=== PATIENT | female | born 1960 | race Caucasian/White ===

== ENCOUNTER 2018-07-30 09:01 | Emergency (ER) | payer OTHER, SELFPAY ==
[2018-07-30 09:02] VITALS: BP 156/92; PULSE 77; RESP 12; TEMP 36.9; O2SAT 100; BMI 36.9
--- NOTE | 2018-07-30 09:12 | CT_ITS ---
STUDY: CT ABDOMEN AND PELVIS WITH CONTRAST REASON FOR EXAM: Female, 57 years old. Left lower quadrant pain. RADIATION DOSAGE (If Supplied By Facility): CTDIvol = ( 13.98 ) mGy, DLP = ( 1102.67 ) mGycm TECHNIQUE: Transaxial images were obtained from the dome of the diaphragm to the symphysis pubis with oral contrast. 100 ml of Isovue 300 contrast was administered. Sagittal and coronal images were reconstructed. Individualized dose optimization techniques were used for this CT. COMPARISON: Comparison is made with prior study dated November 01, 2017. FINDINGS: Stable mild degree of increased markings at the lung bases suggestive of linear atelectasis and/or mild scarring. The visualized portions of the heart are within normal limits. Stable 5 mm cyst in the midportion of the right lobe of the liver. Tiny cyst in the peripheral posterior aspect of the right lobe of the liver. This also evidence of a 1 cm cyst in the midportion of the liver. These are unchanged. Normal gallbladder and extrahepatic biliary system. Normal spleen. Normal pancreas. Normal bilateral adrenal glands. There is a 6.5 cm x 6.8 cm cyst in the upper pole of the right kidney. Normal left kidney. There is a small hiatal hernia. Normal small intestine. There is diverticulosis, with thickening of the colon wall, and pericolonic inflammation changes consistent with acute diverticulitis. There is non-visualization of the appendix. Normal abdominal aorta. Normal inferior vena cava. There is borderline retroperitoneal lymphadenopathy with enlarged nodes no greater than 10mm in the short axis diameter. Normal urinary bladder. There is a small umbilical hernia containing fat. Normal osseous structures. CT/Abdomen/Pelvis WITH Contrast IMPRESSION: Sigmoid diverticulosis and noncomplicated sigmoid diverticulitis. Stable right renal cyst. Multiple subcentimeters cysts in the liver. Electronically Signed: Meek Erwin MD at 11:35 EDT Tel [phone], Service support ,
--- NOTE | 2018-07-30 09:30 | ED.DCSUM_ITS ---
- ER Visit Summary Date of Service: 07/30/18 Chief Complaint: Left lower quadrant pain History of Present Illness: The patient is a 57 F with left lower quadrant pain that started yesterday. Patient states the pain was initially improved with ibuprofen, but now it only takes the edge off. She is passing mucousy stools and has nausea. She denies fever or chills. She states this does feel like her prior diverticulitis. Prior abdominal surgeries are significant for bladder surgery, hysterectomy, appendectomy. Physical Examination: Blood pressure is 156/92, temperature 98.4, heart rate 77 , respiratory rate 12, pulse ox 100% on room air. Patient is lying in the bed. She is tearful. Heart is regular rate and rhythm. Lung sounds are clear. Abdomen is soft with moderate tenderness, worse in the left lower quadrant. There is no guarding at this time. Hypoactive bowel sounds noted throughout. Test Results: CBC is unremarkable. Chemistry studies normal. Urinalysis is positive for nitrites with 10-25 white cells and 2+ bacteria. CT abdomen pelvis with contrast reveals sigmoid diverticulosis and non-complicated sigmoid diverticulitis. Stable right renal cyst is noted. Multiple subcentimeter cysts are noted in the liver. Emergency Department Course and Treatment: Patient was given morphine, Zofran, and IV fluids. Urine culture was sent. Patient is given a dose of IV Cipro and Flagyl. At this time she is tolerating p.o. We will treat her with Cipro and Flagyl at home along with [place], Phenergan, and Colace. If she fails outpatient treatment she may require admission for IV antibiotics. Patient was encouraged to return for worsening pain, fever, vomiting, inability to tolerate antibiotics. Treatment Plan: [] Disposition: Discharge Impression: 1. Sigmoid diverticulitis 2. Cystitis This note was generated with [employer] dictation software. It may contain incorrect words, spelling, and punctuation that were not noted in review of the chart prior to signing ED Disposition - Plan for ED Patient: Disposition: Home or Assisted Living Chief Complaint: Abd Pain Instructions: ED Diverticulitis Prescriptions: proMETHazine tablet [Phenergan] 25 mg PO Q6H PRN PRN #10 tablet PRN Reason: Nausea Docusate Sodium [Colace] 100 mg PO DAILY #20 capsule Hydrocodone/Acetaminophen [[place] 5-325 Tablet] 1 - 2 each PO 4X/DAY PRN PRN 5 Days #20 tablet PRN Reason: Pain Ciprofloxacin [Cipro] 500 mg PO BID #14 tablet Metronidazole [Flagyl] 500 mg PO Q6H #40 tablet Referrals: Katie Greer PA [Primary Care Provider] - 1 Week
[2018-07-30] MEDS: Ondansetron 4 MG/2 ML Vial IV (09:37)
[2018-07-30] MEDS: 0.9% Normal Saline 1,000 ML 150 ML IV ×2 (09:37→11:21)
[2018-07-30] MEDS: Morphine 4 MG/ML Syringe IV ×2 (09:37→11:17)
[2018-07-30 09:41] LABS: Absolute Lymphocyte Count 1.33 X10^3/ul (0.83-4.51); Absolute Neutrophil Count 6.7 X10^3/uL (2.0-7.7); Basophil# 0.02 X10^3/uL; Basophil% 0.2 % (0-1); Eosinophil# 0.12 X10^3/uL; Eosinophils% 1.3 % (0-5); Hematocrit 42.6 % (37-47); Lymphocyte # 1.33 X10^3/ul (4.0); Lymphocyte % 14.9 % (19-41); Mean Corp Hgb Conc 32.9 g/gl (32-36); Mean Corpuscular Hgb 31.5 pg (27.0-32.0); Mean Corpuscular Volume 95.9 fL (81-99); Mean Platelet Vol. 10.3 fl (6.2-12.0); Monocyte# 0.72 X10^3/uL; Monocyte% 8.1 % (0-10); Neutrophil # 6.72 X10^3/uL (2.7-7.7); Neutrophil % 75.2 % (47-70); Platelet Count 243 K/mm3 (150-450); RBC Distribution Width CV 13.1 % (11.6-14.6); RBC Distribution Width SD 44.9 fl (35.1-43.9); Red Blood Count 4.44 M/mm3 (4.2-5.4); White Blood Count 8.9 K/mm3 (4.4-11.0)
[2018-07-30 09:42] LABS: POSITIVE COUNT NO; POSITIVE DIFFERENTIAL NO; POSITIVE MORPHOLOGY NO
[2018-07-30 09:52] LABS: Anion Gap 5 (5-15); BUN 11 mg/dL (7-18); BUN/Creat Ratio 13.9 RATIO (10-20); Calcium,Total 8.7 mg/dL (8.5-10.1); Chloride 106 mmol/L (98-107); Creatinine, Serum 0.79 mg/dL (0.55-1.02); EST Glomerular Filtration Rate 80 mL/min (>60); Est Glom Filt Rate - Afr Amer 97 mL/min (>60); Estimated Creatinine Clearance 57.11 ml/min; Glucose 119 mg/dL (74-106); Potassium 4.4 mmol/L (3.5-5.1); Sodium Level 139 mmol/L (136-145)
[2018-07-30 09:53] LABS: Color, Urine Yellow (Yellow); Glucose, Dipstick Normal (Normal); Ketone-Dipstick Negative (Negative); Leukocyte Esterase-Dipstick 100 /ul (Negative); Mucous, Urine 0 SEEN /hpf (<or=2+); Nitrite-Dipstick Positive (Negative); Occult Blood-Urine 10 /ul (Negative); Protein-Dipstick Negative (Negative); Urine Bilirubin Dipstick Negative (Negative); Urine Clarity Sl. Cloudy (Clear); Urine Urobilinogen Normal (Normal)
[2018-07-30 09:59] LABS: Bacteria 2+ /hpf (None Seen); Red Blood Cells-Urine 0-5 SEEN /hpf (0-5); Squamous Epithelial Cells - UA 0-5 SEEN /hpf (5-10); White Blood Cells 10-25 SEEN /hpf (0-5)
[2018-07-30] MEDS: proMETHazine 25 MG/ML Syringe 6.25 MG IV (11:17)
[2018-07-30] MEDS: Ciprofloxacin 400 MG/200 ML BAG 200 MG IV (11:18)
[2018-07-30 11:42] VITALS: BP 125/62; PULSE 65; RESP 18; TEMP 37; O2SAT 99
[2018-07-30 13:13] VITALS: BP 117/66; PULSE 65; RESP 20; O2SAT 97
[2018-07-30] MEDS: HYDROcodone Bitartrate/Apap 5/325 Tablet PO (13:17)
--- NOTE | 2018-07-30 14:07 | ED.DEP ---
ED Disposition - Plan for ED Patient: Disposition: Home or Assisted Living Chief Complaint: Abd Pain Instructions: ED Diverticulitis Prescriptions: proMETHazine tablet [Phenergan] 25 mg PO Q6H PRN PRN #10 tablet PRN Reason: Nausea Docusate Sodium [Colace] 100 mg PO DAILY #20 capsule Ciprofloxacin [Cipro] 500 mg PO BID #14 tablet Metronidazole [Flagyl] 500 mg PO Q6H #40 tablet Referrals: Katie Greer PA [Primary Care Provider] - 1 Week
--- NOTE | 2018-07-30 14:12 | ED.DEP ---
ED Disposition - Plan for ED Patient: Disposition: Home or Assisted Living Chief Complaint: Abd Pain Instructions: ED Diverticulitis Prescriptions: proMETHazine tablet [Phenergan] 25 mg PO Q6H PRN PRN #10 tablet PRN Reason: Nausea Docusate Sodium [Colace] 100 mg PO DAILY #20 capsule Hydrocodone/Acetaminophen [[place] 5-325 Tablet] 1 - 2 each PO 4X/DAY PRN PRN 5 Days #20 tablet PRN Reason: Pain Ciprofloxacin [Cipro] 500 mg PO BID #14 tablet Metronidazole [Flagyl] 500 mg PO Q6H #40 tablet Referrals: Katie Greer PA [Primary Care Provider] - 1 Week
[2018-07-30 14:25] VITALS: BP 117/66; PULSE 61; RESP 18; O2SAT 99
== END 2018-07-30 14:26 | disposition home or self-care (01) ==
PROVIDERS: Emergency Provider Emergency Medicine; Family Provider Physician Assistant; PCP Physician Assistant
DX: K57.32 Diverticulitis of large intestine without perforation or abscess without bleeding (principal); N30.90 Cystitis, unspecified without hematuria; B96.89 Other specified bacterial agents as the cause of diseases classified elsewhere; K76.89 Other specified diseases of liver; K21.9 Gastro-esophageal reflux disease without esophagitis; I10 Essential (primary) hypertension; E78.00 Pure hypercholesterolemia, unspecified; Z79.82 Long term (current) use of aspirin; Z79.899 Other long term (current) drug therapy; Z72.0 Tobacco use
CPT/HCPCS: 74177; 80048; 81001; 85025; 87077; 87086; 87088; 87186; 96365; 96367; 96375; 96376; 99284; J7030; Q9967; A4216; J0744; J2405

== ENCOUNTER 2020-09-22 17:17 | Inpatient (IN) | payer OTHER, SELFPAY ==
[2020-09-22 17:18] VITALS: BP 138/81; PULSE 71; RESP 16; TEMP 36.6; O2SAT 100; BMI 31.4
--- NOTE | 2020-09-22 17:59 | CT_ITS ---
STUDY: CT ABDOMEN AND PELVIS WITH CONTRAST REASON FOR EXAM: Female, 59 years old. LLQ PAIN TODAY WITH NAUSEA -- HX:HTN,DIVERTICULITIS RADIATION DOSAGE (If Supplied By Facility): CTDIvol = ( 17.41 ) mGy, DLP = ( 913.04 ) mGycm TECHNIQUE: Transaxial images were obtained from the dome of the diaphragm to the symphysis pubis without oral contrast. IV 100mL Isovue-370 was administered. Sagittal and coronal images were reconstructed. Individualized dose optimization techniques were used for this CT. COMPARISON: CT of abdomen and pelvis dated July 30, 2018 FINDINGS: The visualized lung bases are unremarkable. The visualized portions of the heart are within normal limits. Normal liver. Normal gallbladder and extrahepatic biliary system. Normal spleen. Normal pancreas. Normal bilateral adrenal glands. Reidentification of a large simple cyst at superior pole of the right kidney measuring 6.6 cm and requiring no follow-up imaging. Normal left kidney. Normal visualized stomach. Normal small intestine. Mild to moderate acute diverticulitis of the proximal sigmoid colon with surrounding pericolonic inflammatory stranding. Moderate diverticula of the sigmoid colon reidentified. The remaining colonic loops are unremarkable. No free air or abscess. There is non-visualization of the appendix. Normal abdominal aorta. Normal inferior vena cava. Normal retroperitoneum. Normal urinary bladder. There is a small umbilical hernia containing fat. Normal osseous structures. CT/Abdomen/Pelvis W IV Cont ONLY IMPRESSION: 1. Mild to moderate acute diverticulitis of the proximal sigmoid colon with surrounding pericolonic inflammatory stranding. Moderate diverticula of the sigmoid colon reidentified. The remaining colonic loops are unremarkable. No free air or abscess. Electronically Signed: Evelio Nieto MD at 19:15 EST , Service support ,
--- NOTE | 2020-09-22 18:00 | ED.VIS.GEN ---
History of Present Illness Chief Complaint: Abd Pain Informant: Patient Narrative: 59-year-old female with history of diverticulitis presents with left lower quadrant abdominal pain which began this morning is progressively getting worse. She states she did eat popcorn last evening. She states that since her distant last episode of diverticulitis she has been doing well and has been losing weight and eating properly. Patient has nausea but has not been vomiting. She states he might of had a low-grade fever earlier and took ibuprofen. She denies medical problems otherwise except for hypertension. Patient denies urinary symptoms. - Past Medical History (1) Diverticulitis Status: Chronic (2) Depression Status: Chronic (3) GERD (gastroesophageal reflux disease) Status: Chronic (4) Hyperlipemia Status: Chronic (5) Hypertension Status: Chronic Past Medical History - Allergies and Home Meds Allergies/Adverse Reactions: Allergies No Known Allergies Allergy (Verified 09/22/20 17:19) Primary Care Physician: Katie Greer PA [Primary Care Provider] - Prior records reviewed: Yes Past Medical History: - - Reviewed in problem list Surgical History: appendectomy, hysterectomy, tonsillectomy, - Lives: Spouse/ Significant Other Smoking Status: Former smoker Alcohol: None Drugs: None - Family History Maternal Family History: Reports: Cancer, Stroke Paternal Family History: Reports: Stroke Review of Systems General: Reports: Fever - Subjective. Denies: Chills Eyes: Denies: Visual changes - bilaterally, Diplopia ENT: Denies: Rhinorrhea, Sore throat Cardiovascular: Denies: Chest pain, Palpitations Respiratory: Denies: Dyspnea, Cough, Dyspnea on exertion Gastrointestinal: Reports: Abdominal pain, Nausea. Denies: Vomiting, Diarrhea, Constipation Genitourinary: Denies: Dysuria, Hematuria Musculoskeletal: Denies: Myalgias, Arthralgias Skin: Denies: Rash, Abscess Neurological: Denies: Headache, Weakness Psych: Denies: Depression, Anxiety Physical Exam Vital Signs/Narrative: Vital Signs Temp Pulse Resp BP Pulse Ox 09/22/20 17:18 97.8 F 71 16 138/81 H 100 Inital Vital Signs reviewed: Yes General: Well nourished, No Acute Distress Head: Normocephalic Eyes: Perrl, EOMI ENT: Moist mucous membranes, No rhinorrhea Cardiovascular: Regular rate, Regular rhythm Respiratory: No distress Abdomen: Soft, Nondistended, Tender - Tenderness to palpation left lower quadrant. Back: Nontender. Negative for: CVA tenderness Skin: Normal color, No rash Neurological: Alert, Oriented x3 Psychological: Normal affect, Normal Mood Diagnostic/Tx/Re-eval Clinical Impression(s) from Imaging Studies Abdomen/Pelvis CT 09/22/20 17:59 IMPRESSION: 1. Mild to moderate acute diverticulitis of the proximal sigmoid colon with surrounding pericolonic inflammatory stranding. Moderate diverticula of the sigmoid colon reidentified. The remaining colonic loops are unremarkable. No free air or abscess. Electronically Signed: Evelio Nieto MD at 19:15 EST , Service support , Laboratory Data 09/22/20 09/22/20 09/22/20 17:30 17:30 18:55 WBC 9.8 RBC 4.58 Hgb 14.5 Hct 44.9 MCV 98.0 MCH 31.7 MCHC 32.3 RDW Std Deviation 46.8 H RDW Coeff of Jaylen 13.0 Plt Count 272 MPV 10.5 Immature Gran % (Auto) 0.400 Neut % (Auto) 74.4 H Lymph % (Auto) 15.5 L [place] % (Auto) 8.6 Eos % (Auto) 0.9 Baso % (Auto) 0.2 Absolute Neuts (auto) 7.3 Absolute Lymphs (auto) 1.52 Nucleated RBC % 0 Sodium 144 Potassium 4.0 Chloride 107 Carbon Dioxide 34.0 H Anion Gap 3 L BUN 10 Creatinine 0.84 Estim Creat Clear Calc 52.44 Est GFR (MDRD) Af Amer 90 Est GFR (MDRD) Non-Af 74 BUN/Creatinine Ratio 11.9 Glucose 104 Calcium 9.2 Urine Color Yellow Urine Clarity Sl. Cloudy Urine pH 6.0 Ur Specific [place] 1.010 Urine Protein Negative Urine Glucose (UA) Normal Urine Ketones Negative Urine Occult Blood Negative Urine Nitrite Negative Urine Bilirubin Negative Urine Urobilinogen Normal Ur Leukocyte Esterase 100 H Urine RBC 0 SEEN Urine WBC 5-10 SEEN Ur Squamous Epith Cells 0-5 SEEN Urine Bacteria 0 SEEN Urine Mucus 0 SEEN Presents with left lower quadrant pain and history of diverticulitis multiple times. She is not had known fever but states she felt like she might of had a fever. She has nausea without vomiting. Lab work-up today is normal. CT shows mild to moderate diverticulitis. She is given 2 doses of morphine and her pain is still a 5 out of 10. Patient feels that she will not do well at home due to the pain. I spoke with the hospitalist who will admit her for her diverticulitis and intractable abdominal pain. Patient is admitted in stable condition. Impression: 1. Diverticulitis?acute 2. Intractable abdominal pain ED Disposition - Plan for ED Patient: Disposition: Acute Care Hospital [facility] Referrals: Katie Greer PA [Primary Care Provider] -
[2020-09-22] MEDS: Ondansetron 4 MG/2 ML Vial IV (18:04)
[2020-09-22] MEDS: Morphine 4 MG/ML Syringe IV ×2 (18:04→19:55)
[2020-09-22] MEDS: 0.9% Normal Saline 1,000 ML 1000 ML IV (18:04)
[2020-09-22 18:19] LABS: Absolute Lymphocyte Count 1.52 X10^3/uL (0.83-4.51); Absolute Neutrophil Count 7.3 X10^3/uL (2.0-7.7); Basophil# 0.02 X10^3/uL; Basophil% 0.2 % (0-1); Eosinophil# 0.09 X10^3/uL; Eosinophils% 0.9 % (0-5); Hematocrit 44.9 % (37-47); Hemoglobin 14.5 g/dL (12.0-15.0); Lymphocyte # 1.52 X10^3/ul (4.0); Lymphocyte % 15.5 % (19-41); Mean Corp Hgb Conc 32.3 g/dL (32-36); Mean Corpuscular Hgb 31.7 pg (27.0-32.0); Mean Platelet Vol. 10.5 fl (6.2-12.0); Monocyte# 0.84 X10^3/uL; Monocyte% 8.6 % (0-10); NRBC Flagged by Analyzer 0 % (0-5); Neutrophil % 74.4 % (47-70); Platelet Count 272 K/mm3 (150-450); RBC Distribution Width SD 46.8 fl (35.1-43.9); Red Blood Count 4.58 M/mm3 (4.2-5.4); White Blood Count 9.8 K/mm3 (4.4-11.0)
[2020-09-22 18:30] LABS: Anion Gap 3 (5-15); BUN 10 mg/dL (7-18); BUN/Creat Ratio 11.9 RATIO (10-20); Calcium,Total 9.2 mg/dL (8.5-10.1); Chloride 107 mmol/L (98-107); Creatinine, Serum 0.84 mg/dL (0.55-1.02); EST Glomerular Filtration Rate 74 mL/min (>60); Est Glom Filt Rate - Afr Amer 90 mL/min (>60); Estimated Creatinine Clearance 52.44 ml/min; Glucose 104 mg/dL (74-106); Sodium Level 144 mmol/L (136-145)
[2020-09-22 19:08] LABS: Bacteria 0 SEEN /hpf (None Seen); Mucous, Urine 0 SEEN /hpf (<or=2+); Red Blood Cells-Urine 0 SEEN /hpf (0-5)
[2020-09-22 19:10] LABS: Color, Urine Yellow (Yellow); Glucose, Dipstick Normal (Normal); Ketone-Dipstick Negative (Negative); Leukocyte Esterase-Dipstick 100 /ul (Negative); Nitrite-Dipstick Negative (Negative); Occult Blood-Urine Negative /ul (Negative); Protein-Dipstick Negative (Negative); Urine Bilirubin Dipstick Negative (Negative); Urine Clarity Sl. Cloudy (Clear); Urine Urobilinogen Normal (Normal)
[2020-09-22 19:19] LABS: Squamous Epithelial Cells - UA 0-5 SEEN /hpf (5-10); White Blood Cells 5-10 SEEN /hpf (0-5)
[2020-09-22 20:26] VITALS: BMI 31.5
--- NOTE | 2020-09-22 20:28 | HP.PCM_ITS ---
Problem List (1) Diverticulitis Status: Acute (2) Anxiety and depression Status: Chronic (3) Former tobacco use Status: Chronic (4) Obesity (BMI 30.0-34.9) Status: Chronic (5) GERD (gastroesophageal reflux disease) Status: Chronic Qualifiers: Esophagitis presence: esophagitis presence not specified Qualified Code(s): K21.9 - Gastro-esophageal reflux disease without esophagitis (6) Hyperlipemia Status: Chronic Qualifiers: Hyperlipidemia type: unspecified Qualified Code(s): E78.5 - Hyperlipidemia, unspecified (7) Hypertension Status: Chronic Qualifiers: Hypertension type: essential hypertension Qualified Code(s): I10 - Essential (primary) hypertension History of Present Illness Date of Admission: 09/22/20 Chief Complaint: LLQ pain The patient is a 59 y/o F w/ PMHx: Obesity, Anxiety and Depression, HTN, HLD, GERD who presents to the [facility] ED on 09/22/20 with history of ongoing 24 hours of pain, following popcorn intake evening prior, progressed over the course of the day, primarily LLQ with nausea without emesis and subjective fever/chills rated at its worst 10 of 10, currently improved to 4-5 out of 10 upon evaluation but during the day had been worsening and given not improving prompted ED presentation. She notes history of prior episodes last admission noted 2016 but states that she has been treated outpatient several times since then. She notes she has been eating well and decreasing her weight. Patient with some congestion currently but secondary to crying, denies prior any congestion, alteration to sense of taste or smell, cough, dyspnea or even any specific contact with any Covid positive patients. 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 Work-up in the ED included T 97.8, heart rate 71, BP 138/81, respiratory rate 16, 100% on room air, CBC with WBC 9.8, hemoglobin 14.5, platelet 272 without marked shift, BMP with carbon oxide 34 otherwise not marked appearing, urinalysis unremarkable, CT abdomen and pelvis with mild to moderate acute diverticulitis of the proximal sigmoid colon with surrounding pericolonic inflammation and stranding with moderate diverticula of the sigmoid colon reidentified the remaining colonic loops are unremarkable with no free air or abscess. In the ED patient administered normal saline, Zofran, morphine x2 as well as fentanyl. Past Medical History Past Medical History (Chronic Problems): Chronic Problems Anxiety and depression (Chronic) Former tobacco use (Chronic) Obesity (BMI 30.0-34.9) (Chronic) Depression (Chronic) GERD (gastroesophageal reflux disease) (Chronic) Hyperlipemia (Chronic) Hypertension (Chronic) Allergies No Known Allergies Allergy (Verified 09/22/20 17:19) Home Medications: Ambulatory Orders Medication Instructions Recorded Citalopram [Celexa] 20 mg PO DAILY 04/15/16 Lisinopril/Hydrochlorothiazide 1 tablet PO DAILY 04/15/16 [Zestoretic 10.5 Tablet] Pravastatin [Pravachol] 80 mg PO DAILY 04/15/16 Aspirin [Aspirin, Baby] 81 mg PO DAILY@0800 02/19/17 Ascorbic Acid 500 mg PO DAILY 09/22/20 Multivitamin with Minerals 1 tab PO DAILY 09/22/20 [Multiple Vitamin] Omeprazole 20 mg PO DAILY 09/22/20 Surgical History: appendectomy, hysterectomy, tonsillectomy, - - Bilateral tubal ligation, hysterectomy, tonsillectomy, appendectomy, bilateral carpal tunnel surgery. Psychiatric History: Anxiety, Depression [employer] History: No pertinent [employer] history Lives: Spouse/ Significant Other Smoking Status: Former smoker - Patient quit cigarette tobacco usage approximately 28 years prior to current presentation with prior to this 1 to 1.5 pack/day cigarette tobacco use starting when she was a teenager. Tobacco Use: Non-smoker Alcohol: Occasional Drugs: None - *Family History Maternal History Items: Cancer - Mother with a history of colon cancer., Stroke Paternal History Items: Stroke Review of Systems Constitutional: Reports: Anorexia, Chills, Fever, Malaise, Weakness, Fatigue. Denies: Weight Change HEENT: Denies: Head Aches, Sinus Congestion, Sinus Drainage Cardiovascular: Denies: Chest Pain, Palpitations Respiratory: Denies: Cough, Shortness of breath at rest, Sputum production Gastrointestinal: Reports: Abdominal Pain, Nausea, - - Not specifically diarrhea but notes she had more soft mucousy stool.. Denies: Vomiting Genitourinary: Denies: Dysuria Musculoskeletal: Denies: Joint Pain, Joint Tenderness Skin: Denies: Rash, Wounds Neurological: Denies: Numbness, Tingling, Focal weakness Psychiatric: Reports: Anxiety, Depression. Denies: Homicidal Ideations, Suicidal Ideations Hematologic/ Lymphatic: Denies: Easy Bruising, Easy Bleeding VTE Information - Inpt Only VTE Present on Admission: No VTE Mechan Device Prophylaxis: SCD's VTE Pharm Prophylaxis ordered?: Yes Patient Problems: Active and Suspected Problems Diverticulitis (Acute) Subjective: Patient seated upright in the ED bed, uncomfortable appearing, recently has been crying secondary to discomfort. Objective: Physical Examination: General: awake, alert, oriented x 3 and cooperative, seated upright in the ED bed, fatigued and uncomfortable appearing. Skin: normal color, turgor, no icterus, cyanosis. HEENT: AT/NC, EOMI, PERRLA, mildly dry MM, congested voice secondary to recently crying, denies any prior symptoms, no carotid bruits or JVD noted. Lungs: CTA bilaterally, moderate effort, mild decrease BL bases, no rales, ronchi or wheezing. Heart: Regular rate and rhythm; no gallop, rub audible. Abdomen: soft, significantly tender left lower quadrant, voluntary guarding, difficult to assess distention given discomfort, mildly hyperactive bowel sounds, difficult to assess HSM secondary to pain with examination. Extremities: no cyanosis, clubbing, or edema. Neurological: patient awake, alert, oriented x 3; cognitive function intact; pupils equally reactive to light and accomodation; cranial nerves II-XII grossly normal, moving all 4 extremities, no focal deficits, strength moderately to severely globally decreased secondary to acute pain as noted. Psychiatric: affect appears fatigued, uncomfortable appearing, no acute evidence of depressive or anxiety feelings. - Physical Exam Vitals/I&O's: Vital Signs Temp Pulse Resp BP Pulse Ox 97.8 F 71 16 138/81 H 100 09/22/20 17:18 09/22/20 17:18 09/22/20 17:18 09/22/20 17:18 09/22/20 17:18 Oxygen Delivery Method Room Air Weight: 160 lb 11.472 oz Body Mass Index (BMI) 31.4 Intake and Output for Last 24 Hours 09/20/20 09/21/20 09/22/20 23:59 23:59 23:59 Intake Total 1000 / 1000 Balance 1000 / 1000 Laboratory Results 09/22/20 17:30: WBC 9.8, RBC 4.58, Hgb 14.5, Hct 44.9, MCV 98.0, MCH 31.7, MCHC 32.3, RDW Std Deviation 46.8 H, RDW Coeff of Jaylen 13.0, Plt Count 272, MPV 10.5, Immature Gran % (Auto) 0.400, Neut % (Auto) 74.4 H, Lymph % (Auto) 15.5 L, [place] % (Auto) 8.6, Eos % (Auto) 0.9, Baso % (Auto) 0.2, Absolute Neuts (auto) 7.3, Absolute Lymphs (auto) 1.52, Nucleated RBC % 0 09/22/20 17:30: Sodium 144, Potassium 4.0, Chloride 107, Carbon Dioxide 34.0 H, Anion Gap 3 L, BUN 10, Creatinine 0.84, Estim Creat Clear Calc 52.44, Est GFR (MDRD) Af Amer 90, Est GFR (MDRD) Non-Af 74, BUN/Creatinine Ratio 11.9, Glucose 104, Calcium 9.2 09/22/20 18:55: Urine Color Yellow, Urine Clarity Sl. Cloudy, Urine pH 6.0, Ur Specific [place] 1.010, Urine Protein Negative, Urine Glucose (UA) Normal, Urine Ketones Negative, Urine Occult Blood Negative, Urine Nitrite Negative, Urine Bilirubin Negative, Urine Urobilinogen Normal, Ur Leukocyte Esterase 100 H, Urine RBC 0 SEEN, Urine WBC 5-10 SEEN, Ur Squamous Epith Cells 0-5 SEEN, Urine Bacteria 0 SEEN, Urine Mucus 0 SEEN Assessment/Plan All Active Problems Diverticulitis (Acute) The patient is a 59 y/o F w/ PMHx: Obesity, Anxiety and Depression, HTN, HLD, GERD who presents to the [facility] ED on 09/22/20 with history of ongoing 24 hours of pain, following popcorn intake evening prior, progressed over the course of the day, primarily LLQ with nausea without emesis and subjective fever/chills rated at its worst 10 of 10, currently improved to 4-5 out of 10 upon evaluation but during the day had been worsening. 1. Acute proximal sigmoid Diverticulitis: CT A/P w/ evidence of moderate acute diverticulitis of the proximal sigmoid colon with surrounding pericolonic inflammation and stranding. Admission CBC w/ market WBC elevation afebrile in the ED. Will admit to [facility], maintain on aggressive hydration, monitor I&Os, maintain NPO status w/ bowel rest, treat with zosyn regimen, PPI, anti-emetics, pain regimen PRN. Given serial presentations will request general surgery consultation, discussed with Dr. Salmon to assist with outpatient set-up. 2. Hypertension: Continue home regimen including lisinopril, hold hydrochlorothiazide temporarily given presentation, resume once appropriate, PRN hydralazine. 3. Hyperlipidemia: Continue home statin regimen. 4. Anxiety and depression: We will continue patient home Celexa regimen. 5. Obesity: Weight loss and lifestyle changes encouraged. 6. GERD: Maintain on PPI. 7. DVT prophylaxis: SCDs, Lovenox. OBSV E&M: [id number] Initial observation care L3
[2020-09-22] MEDS: fentaNYL 100 MCG/2 ML Ampul 50 MCG IV (21:01)
[2020-09-22 21:04] VITALS: BP 171/73; PULSE 67; RESP 16; TEMP 36.9; O2SAT 99
[2020-09-22 21:32] VITALS: BMI 31.2
[2020-09-22 22:03] VITALS: BP 150/68; PULSE 59; RESP 20; TEMP 37.2; O2SAT 100
[2020-09-22 22:05] VITALS: PULSE 74
[2020-09-22] MEDS: Pravastatin 80 MG Tablet PO (22:29)
[2020-09-22] MEDS: oxyCODONE 5 MG Tablet PO (22:29)
--- NOTE | 2020-09-23 02:30 | NURSING ---
Pt wanted Oxy around 0230 but when I checked on her she was sleeping. I had advised her earlier that I would return around 0230 but would not awaken her if she was sleeping.
[2020-09-23 02:51] VITALS: BP 123/51; PULSE 71; RESP 20; TEMP 37.7; O2SAT 96
[2020-09-23] MEDS: oxyCODONE 5 MG Tablet PO ×2 (02:57→10:55)
[2020-09-23] MEDS: 0.9% Normal Saline 1,000 ML 125 ML IV ×2 (05:32→17:32)
[2020-09-23 06:53] LABS: Absolute Lymphocyte Count 1.14 X10^3/uL (0.83-4.51); Absolute Neutrophil Count 4.5 X10^3/uL (2.0-7.7); Basophil# 0.02 X10^3/uL; Basophil% 0.3 % (0-1); Eosinophil# 0.07 X10^3/uL; Eosinophils% 1.1 % (0-5); Hematocrit 38.2 % (37-47); Hemoglobin 11.7 g/dL (12.0-15.0); Lymphocyte # 1.14 X10^3/ul (4.0); Lymphocyte % 18.2 % (19-41); Mean Corp Hgb Conc 30.6 g/dL (32-36); Mean Corpuscular Hgb 30.4 pg (27.0-32.0); Mean Corpuscular Volume 99.2 fL (81-99); Monocyte# 0.56 X10^3/uL; Monocyte% 8.9 % (0-10); NRBC Flagged by Analyzer 0 % (0-5); Neutrophil # 4.46 X10^3/uL (2.7-7.7); Neutrophil % 71.2 % (47-70); Platelet Count 198 K/mm3 (150-450); RBC Distribution Width SD 47.7 fl (35.1-43.9); Red Blood Count 3.85 M/mm3 (4.2-5.4); White Blood Count 6.3 K/mm3 (4.4-11.0)
[2020-09-23 07:20] LABS: ALB/GLOB Ratio 1.1 RATIO (0.9-2.4); AST(SGOT) 12 U/L (15-37); Alanine Aminotransfer ALT/SGPT 16 U/L (13-56); Albumin, Serum 2.9 g/dL (3.2-5.0); Alkaline Phosphatase 38 U/L (45-117); Anion Gap 4 (5-15); BUN 7 mg/dL (7-18); BUN/Creat Ratio 9.5 RATIO (10-20); Chloride 111 mmol/L (98-107); Creatinine, Serum 0.74 mg/dL (0.55-1.02); EST Glomerular Filtration Rate 86 mL/min (>60); Est Glom Filt Rate - Afr Amer 104 mL/min (>60); Estimated Creatinine Clearance 59.52 ml/min; Globulin 2.7 g/dL (2.2-4.2); Glucose 86 mg/dL (74-106); Potassium 3.5 mmol/L (3.5-5.1); Protein, Total 5.6 g/dL (6.4-8.2); Sodium Level 143 mmol/L (136-145)
[2020-09-23 07:45] VITALS: O2SAT 96
[2020-09-23] MEDS: 0.9% Saline Lock 10 ML Syringe IV (08:09)
--- NOTE | 2020-09-23 08:14 | PN_ITS ---
Patient Problems: Active and Suspected Problems Diverticulitis (Acute) Reason for Visit: Follow-up for acute sigmoid diverticulitis Objective: No fever or tachycardia. No leukocytosis. Heart rate and blood pressure are normal. Denies dysuria or lower urinary tract symptoms. Patient had last bowel movement yesterday and is passing gas. Physical exam General: Alert, Oriented x3, Cooperative HEENT: Atraumatic, PERRLA, EOMI, Normocephalic Oral: No Gingival or Mucosal Lesions/ Ulcerations Neck: Supple, No JVD, Negative Carotid Bruits Lungs: Air entry diminished in bilateral lung bases. No crepitation/rhonchi Cardiovascular: Regular rate, Regular Rhythm, Normal S1, Normal S2, No murmurs Abdomen: Tenderness present over left lower quadrant. Bowel Sounds Present, Soft, Non-Distended : No renal angle tenderness. No suprapubic tenderness. Extremities: No edema, Capillary Refill Less than 3 Seconds Skin: No rashes, No breakdown Musculoskeletal: No Tenderness to Palpation of Joints or Extremities Neurological: Cranial nerves II-XII grossly intact, Deep Tendon Reflexes 2+/4 and Symmetrical, Neuro grossly intact Psych/Mental Status: Normal Affect, Appropriate. Vitals/I&O's: Vital Signs Temp Pulse Resp BP Pulse Ox 99.8 F H 71 20 H 123/51 H 96 09/23/20 02:51 09/23/20 02:51 09/23/20 02:51 09/23/20 02:51 09/23/20 02:51 Oxygen Delivery Method Room Air Weight: 160 lb Body Mass Index (BMI) 31.2 Intake and Output for Last 24 Hours 09/21/20 09/22/20 09/23/20 23:59 23:59 23:59 Intake Total 1110 / 1110 10.42 / 10.42 Output Total 100 / 100 200 / 200 Balance 1010 / 1010 -189.58 / -189.58 Laboratory Results 09/22/20 17:30: WBC 9.8, RBC 4.58, Hgb 14.5, Hct 44.9, MCV 98.0, MCH 31.7, MCHC 32.3, RDW Std Deviation 46.8 H, RDW Coeff of Jaylen 13.0, Plt Count 272, MPV 10.5, Immature Gran % (Auto) 0.400, Neut % (Auto) 74.4 H, Lymph % (Auto) 15.5 L, Hancock % (Auto) 8.6, Eos % (Auto) 0.9, Baso % (Auto) 0.2, Absolute Neuts (auto) 7.3, Absolute Lymphs (auto) 1.52, Nucleated RBC % 0 09/22/20 17:30: Sodium 144, Potassium 4.0, Chloride 107, Carbon Dioxide 34.0 H, Anion Gap 3 L, BUN 10, Creatinine 0.84, Estim Creat Clear Calc 52.44, Est GFR (MDRD) Af Amer 90, Est GFR (MDRD) Non-Af 74, BUN/Creatinine Ratio 11.9, Glucose 104, Calcium 9.2 09/22/20 18:55: Urine Color Yellow, Urine Clarity Sl. Cloudy, Urine pH 6.0, Ur Specific [place] 1.010, Urine Protein Negative, Urine Glucose (UA) Normal, Urine Ketones Negative, Urine Occult Blood Negative, Urine Nitrite Negative, Urine Bilirubin Negative, Urine Urobilinogen Normal, Ur Leukocyte Esterase 100 H, Urine RBC 0 SEEN, Urine WBC 5-10 SEEN, Ur Squamous Epith Cells 0-5 SEEN, Urine Bacteria 0 SEEN, Urine Mucus 0 SEEN 09/23/20 06:18: WBC 6.3, RBC 3.85 L, Hgb 11.7 L, Hct 38.2, MCV 99.2 H, MCH 30.4, MCHC 30.6 L D, RDW Std Deviation 47.7 H, RDW Coeff of Jaylen 13.0, Plt Count 198, MPV 10.0, Immature Gran % (Auto) 0.300, Neut % (Auto) 71.2 H, Lymph % (Auto) 18.2 L, Hancock % (Auto) 8.9, Eos % (Auto) 1.1, Baso % (Auto) 0.3, Absolute Neuts (auto) 4.5, Absolute Lymphs (auto) 1.14, Nucleated RBC % 0 09/23/20 06:18: Sodium 143, Potassium 3.5, Chloride 111 H, Carbon Dioxide 28.0, Anion Gap 4 L, BUN 7, Creatinine 0.74, Estim Creat Clear Calc 59.52, Est GFR (MDRD) Af Amer 104, Est GFR (MDRD) Non-Af 86, BUN/Creatinine Ratio 9.5 L, Glucose 86, Calcium 8.0 L, Total Bilirubin 0.70, AST 12 L, ALT 16, Alkaline Phosphatase 38 L, Total Protein 5.6 L, Albumin 2.9 L, Globulin 2.7, Albumin/Globulin Ratio 1.1 Current Medications Acetaminophen (Acetaminophen 325 Mg Tablet) 650 mg PO Q6H PRN PRN PRN Reason: Pain Score 1-10/Temp > 100.7 F Al Hydroxide/Mg Hydroxide (Mag Hydrox/Al Hydrox/Simeth 30 Ml Udc) 30 ml PO Q6H PRN PRN PRN Reason: Gastric Burning Albuterol Sulfate (Albuterol 2.5 Mg/3 Ml Vial.Neb.) 2.5 mg INHALATION Q2H PRN P RN PRN Reason: Dyspnea, wheezing Ascorbic Acid (Ascorbic Acid 500 Mg Tablet) 500 mg PO DAILY [facility] Aspirin (Aspirin 81 Mg Tab.Chew) 81 mg PO DAILY@0800 [facility] Citalopram Hydrobromide (Citalopram 20 Mg Tablet) 20 mg PO DAILY [facility] Docusate Sodium (Docusate Sodium 100 Mg Capsule) 100 mg PO DAILY [facility] Enoxaparin Sodium (Enoxaparin 40 Mg/0.4 Ml Syringe) 40 mg SC DAILY [facility] Guaifenesin (Guaifenesin 10 Ml Udc (200mg/10ml)) 20 ml PO Q4H PRN PRN PRN Reason: COUGH Hydralazine HCl (Hydralazine 20 Mg/Ml Vial) 10 mg IV Q4H PRN PRN PRN Reason: SBP > 160 Hydromorphone HCl (Hydromorphone 0.5 Mg/0.5 Ml Syringe) 0.5 mg IV Q4H PRN PRN PRN Reason: Pain Score 6-10 Sodium Chloride () 1,000 mls @ 125 mls/hr IV .Q8H [facility] Last Infusion: 09/23/20 07:39 Dose: 125 mls/hr Documented by: Piperacillin Sod/Tazobactam (Sod 3.375 gm/ Sodium Chloride) 50 mls @ 12.5 mls/hr IV Q8 [facility] Last Admin: 09/23/20 05:33 Dose: 12.5 mls/hr Documented by: Pantoprazole Sodium 40 mg/ (Sodium Chloride) 110 mls @ 330 mls/hr IV Q12 [facility] Last Infusion: 11/17/20 22:49 Dose: Infused Documented by: Sodium Chloride () 250 mls @ 15 mls/hr IV .[id number] PRN PRN Reason: Saline Flush Sodium Chloride () 250 mls @ 15 mls/hr IV .[id number] PRN PRN Reason: Additional IVPB Infusion Lisinopril (Lisinopril 10 Mg Tablet) 10 mg PO DAILY [facility] Ondansetron HCl (Ondansetron 4 Mg/2 Ml Vial) 4 mg IV Q8H PRN PRN PRN Reason: NAUSEA/VOMITING Oxycodone HCl (Oxycodone 5 Mg Tablet) 5 mg PO Q4H PRN PRN PRN Reason: Pain Score 4-5 Last Admin: 09/23/20 02:57 Dose: 5 mg Documented by: Pravastatin Sodium (Pravastatin 80 Mg Tablet) 80 mg PO DAILY@2200 [facility] Last Admin: 09/22/20 22:29 Dose: 80 mg Documented by: Prochlorperazine Edisylate (Prochlorperazine 10 Mg/2 Ml Vial) 5 mg IV Q4H PRN PRN PRN Reason: Breakthrough nausea/vomiting Sodium Chloride (0.9% Saline Lock 10 Ml Syringe) 10 - 40 ml IV UD PRN PRN Reason: SALINE FLUSH Temazepam (Temazepam 15 Mg Capsule) 15 mg PO QHS PRN PRN PRN Reason: INSOMNIA Throat Lozenges (Benzocaine/Menthol 1 Lozenge) 1 lozenge MUCOUS MEM Q2H PRN PRN PRN Reason: SORE THROAT Medical Necessity - Tobacco Use Smoking Status: Current every day smoker Tobacco Use: Non-smoker Assessment/Plan All Active Problems Diverticulitis (Acute) The patient is a 59 y/o F with history of hypertension, dyslipidemia and GERD was admitted with severe left lower quadrant abdominal pain, 10/10 intensity along with nausea without vomiting and fever with chills. CT abdomen and pelvis showed moderate Acute sigmoid colon with pericolonic inflammatory stranding. No free air or abscess reported. 1. Acute proximal sigmoid Diverticulitis: [place] [facility] No leukocytosis. H&H is stable 1.7/38.2. Low alkaline phosphatase. K 3.5. Continue IV fluid. Monitor intake and output. N.p.o. except sips. On IV Zosyn. Other supportive medications including antiemetics, PPI and pain. Patient seen by Dr. Salmon and agree with the plan of conservative management. And had colonoscopy about 5 years ago and had polyps removed which were benign. K. Dur 40 mEq 1 dose. Check serum magnesium. 2. Hypertension: Continue lisinopril, hold hydrochlorothiazide. Blood pressure is controlled. 3. Hyperlipidemia: Continue home statin regimen. 4. Anxiety and depression: continue patient home Celexa regimen. 5. Obesity: Weight loss and lifestyle changes encouraged. 6. GERD: Maintain on PPI. 7. DVT prophylaxis: SCDs, Lovenox. Clinical Impression(s) from Imaging Studies Abdomen/Pelvis CT 09/22/20 17:59 IMPRESSION: 1. Mild to moderate proximal sigmoid colon the proximal sigmoid colon with surrounding pericolonic inflammatory stranding. Moderate diverticula of the sigmoid colon reidentified. The remaining colonic loops are unremarkable. No free air or abscess. Laboratory Results 09/22/20 17:30: WBC 9.8, RBC 4.58, Hgb 14.5, Hct 44.9, MCV 98.0, MCH 31.7, MCHC 32.3, RDW Std Deviation 46.8 H, RDW Coeff of Jaylen 13.0, Plt Count 272, MPV 10.5, Immature Gran % (Auto) 0.400, Neut % (Auto) 74.4 H, Lymph % (Auto) 15.5 L, [place]ancock % (Auto) 8.6, Eos % (Auto) 0.9, Baso % (Auto) 0.2, Absolute Neuts (auto) 7.3, Absolute Lymphs (auto) 1.52, Nucleated RBC % 0 09/22/20 17:30: Sodium 144, Potassium 4.0, Chloride 107, Carbon Dioxide 34.0 H, Anion Gap 3 L, BUN 10, Creatinine 0.84, Estim Creat Clear Calc 52.44, Est GFR (MDRD) Af Amer 90, Est GFR (MDRD) Non-Af 74, BUN/Creatinine Ratio 11.9, Glucose 104, Calcium 9.2 09/22/20 18:55: Urine Color Yellow, Urine Clarity Sl. Cloudy, Urine pH 6.0, Ur Specific [place] 1.010, Urine Protein Negative, Urine Glucose (UA) Normal, Urine Ketones Negative, Urine Occult Blood Negative, Urine Nitrite Negative, Urine Bilirubin Negative, Urine Urobilinogen Normal, Ur Leukocyte Esterase 100 H, Urine RBC 0 SEEN, Urine WBC 5-10 SEEN, Ur Squamous Epith Cells 0-5 SEEN, Urine Bacteria 0 SEEN, Urine Mucus 0 SEEN 09/23/20 06:18: WBC 6.3, RBC 3.85 L, Hgb 11.7 L, Hct 38.2, MCV 99.2 H, MCH 30.4, MCHC 30.6 L D, RDW Std Deviation 47.7 H, RDW Coeff of Jaylen 13.0, Plt Count 198, MPV 10.0, Immature Gran % (Auto) 0.300, Neut % (Auto) 71.2 H, Lymph % (Auto) 18.2 L, Hancock % (Auto) 8.9, Eos % (Auto) 1.1, Baso % (Auto) 0.3, Absolute Neuts (auto) 4.5, Absolute Lymphs (auto) 1.14, Nucleated RBC % 0 09/23/20 06:18: Sodium 143, Potassium 3.5, Chloride 111 H, Carbon Dioxide 28.0, Anion Gap 4 L, BUN 7, Creatinine 0.74, Estim Creat Clear Calc 59.52, Est GFR (MDRD) Af Amer 104, Est GFR (MDRD) Non-Af 86, BUN/Creatinine Ratio 9.5 L, Glucose 86, Calcium 8.0 L, Total Bilirubin 0.70, AST 12 L, ALT 16, Alkaline Phosphatase 38 L, Total Protein 5.6 L, Albumin 2.9 L, Globulin 2.7, Albumin/Globulin Ratio 1.1 Inpatient E&M: 82821 Subs Hosp L2
[2020-09-23] MEDS: HYDROmorphone 0.5 MG/0.5 ML SYRINGE IV ×2 (08:16→13:49)
[2020-09-23] MEDS: Aspirin 81 MG TAB.CHEW PO (08:22)
--- NOTE | 2020-09-23 08:53 | PCM.CONS.GEN ---
Problem List (1) Diverticulitis Status: Acute Reason for Consult Date of Consultation: 09/23/20 Reason for Consultation: Acute diverticulitis History of Present Illness: The patient is a 59 year old F who presented with 1 day history of worsening left lower abdominal pain. Patient notes a history of diverticulitis. She has mostly been treated as an outpatient and has had 1 hospitalization for diverticulitis. Patient notes her last hospitalization was years ago. Her last episode of diverticulitis was in December and treated as an outpatient. She notes the abdominal pain is always in the same spot when she does develop diverticulitis. She notes the pain intensity is 7 out 10. Patient notes nausea, mucousy soft stool. She denies vomiting, blood in her stool. She noted eating popcorn 2 days ago. Patient notes losing 30 pounds since December intentionally. She notes her last colonoscopy was approximately [address] Campos. She had a polyp removed in the colon. Pathology returned as colonic mucous. Patient notes her mother had colon cancer. Patient has previously had a hysterectomy, appendectomy and bladder surgery. Patient denies cardiac history. She notes previous history of pneumonia, however denies COPD and asthma. CT scan of the ab/pel demonstrated Mild to moderate acute diverticulitis of the proximal sigmoid colon with surrounding pericolonic inflammatory stranding. Moderate diverticula of the sigmoid colon reidentified. The remaining colonic loops are unremarkable. No free air or abscess. WBC 9.8 --> 6.3 Past Medical History Past Medical History (Chronic Problems): Chronic Problems Anxiety and depression (Chronic) Former tobacco use (Chronic) Obesity (BMI 30.0-34.9) (Chronic) Depression (Chronic) GERD (gastroesophageal reflux disease) (Chronic) Hyperlipemia (Chronic) Hypertension (Chronic) Allergies No Known Allergies Allergy (Verified 09/22/20 17:19) Home Medications: Ambulatory Orders Medication Instructions Recorded Citalopram [Celexa] 20 mg PO DAILY 04/15/16 Lisinopril/Hydrochlorothiazide 1 tablet PO DAILY 04/15/16 [Zestoretic 08/17.5 Tablet] Pravastatin [Pravachol] 80 mg PO DAILY 04/15/16 Aspirin [Aspirin, Baby] 81 mg PO DAILY@0800 02/19/17 Ascorbic Acid 500 mg PO DAILY 09/22/20 Multivitamin with Minerals 1 tab PO DAILY 09/22/20 [Multiple Vitamin] Omeprazole 20 mg PO DAILY 09/22/20 Surgical History: appendectomy, hysterectomy, tonsillectomy 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 Denies: Chills, Weight Change HEENT: Denies: Head Aches, Sinus Congestion, Sinus Drainage Cardiovascular: Denies: Chest Pain, Palpitations Respiratory: Denies: Cough, Shortness of breath at rest, Sputum production Gastrointestinal: Reports: Abdominal Pain, Nausea. Denies: Hematochezia, Vomiting Genitourinary: Denies: Dysuria Musculoskeletal: Denies: Joint Pain, Joint Tenderness Skin: Denies: Rash, Wounds Neurological: Denies: Numbness, Tingling, Focal weakness Psychiatric: Reports: Depression. Denies: Anxiety, Homicidal Ideations, Suicidal Ideations Hematologic/ Lymphatic: Denies: Easy Bruising, Easy Bleeding Patient Problems: Active and Suspected Problems Diverticulitis (Acute) - Physical Exam Vitals/I&O's: Vital Signs Temp Pulse Resp BP Pulse Ox 99.8 F H 71 20 H 123/51 H 96 09/23/20 02:51 09/23/20 02:51 09/23/20 02:51 09/23/20 02:51 09/23/20 07:45 Oxygen Delivery Method Room Air Weight: 160 lb Body Mass Index (BMI) 31.2 Intake and Output for Last 24 Hours 09/21/20 09/22/20 09/23/20 23:59 23:59 23:59 Intake Total 1160 / 1160 10.42 / 10.42 Output Total 100 / 100 200 / 200 Balance 1060 / 1060 -189.58 / -189.58 General: Alert, Oriented x3, Cooperative HEENT: Atraumatic, PERRLA, EOMI, Normocephalic Neck: Supple, No JVD, Negative Carotid Bruits Lungs: Clear to auscultation, Normal air movement Cardiovascular: Regular rate, No murmurs Abdomen: Soft, Tender - left lower quadrant Extremities: No edema, Capillary Refill Less than 3 Seconds Skin: No rashes, No breakdown Musculoskeletal: No Tenderness to Palpation of Joints or Extremities Neurological: Neuro grossly intact Psych/Mental Status: Normal Affect, Appropriate Laboratory Results 09/22/20 17:30: WBC 9.8, RBC 4.58, Hgb 14.5, Hct 44.9, MCV 98.0, MCH 31.7, MCHC 32.3, RDW Std Deviation 46.8 H, RDW Coeff of Jaylen 13.0, Plt Count 272, MPV 10.5, Immature Gran % (Auto) 0.400, Neut % (Auto) 74.4 H, Lymph % (Auto) 15.5 L, Sharp % (Auto) 8.6, Eos % (Auto) 0.9, Baso % (Auto) 0.2, Absolute Neuts (auto) 7.3, Absolute Lymphs (auto) 1.52, Nucleated RBC % 0 09/22/20 17:30: Sodium 144, Potassium 4.0, Chloride 107, Carbon Dioxide 34.0 H, Anion Gap 3 L, BUN 10, Creatinine 0.84, Estim Creat Clear Calc 52.44, Est GFR (MDRD) Af Amer 90, Est GFR (MDRD) Non-Af 74, BUN/Creatinine Ratio 11.9, Glucose 104, Calcium 9.2 09/22/20 18:55: Urine Color Yellow, Urine Clarity Sl. Cloudy, Urine pH 6.0, Ur Specific [place] 1.010, Urine Protein Negative, Urine Glucose (UA) Normal, Urine Ketones Negative, Urine Occult Blood Negative, Urine Nitrite Negative, Urine Bilirubin Negative, Urine Urobilinogen Normal, Ur Leukocyte Esterase 100 H, Urine RBC 0 SEEN, Urine WBC 5-10 SEEN, Ur Squamous Epith Cells 0-5 SEEN, Urine Bacteria 0 SEEN, Urine Mucus 0 SEEN 09/23/20 06:18: WBC 6.3, RBC 3.85 L, Hgb 11.7 L, Hct 38.2, MCV 99.2 H, MCH 30.4, MCHC 30.6 L D, RDW Std Deviation 47.7 H, RDW Coeff of Jaylen 13.0, Plt Count 198, MPV 10.0, Immature Gran % (Auto) 0.300, Neut % (Auto) 71.2 H, Lymph % (Auto) 18.2 L, Sharp % (Auto) 8.9, Eos % (Auto) 1.1, Baso % (Auto) 0.3, Absolute Neuts (auto) 4.5, Absolute Lymphs (auto) 1.14, Nucleated RBC % 0 09/23/20 06:18: Sodium 143, Potassium 3.5, Chloride 111 H, Carbon Dioxide 28.0, Anion Gap 4 L, BUN 7, Creatinine 0.74, Estim Creat Clear Calc 59.52, Est GFR (MDRD) Af Amer 104, Est GFR (MDRD) Non-Af 86, BUN/Creatinine Ratio 9.5 L, Glucose 86, Calcium 8.0 L, Total Bilirubin 0.70, AST 12 L, ALT 16, Alkaline Phosphatase 38 L, Total Protein 5.6 L, Albumin 2.9 L, Globulin 2.7, Albumin/Globulin Ratio 1.1 Current Medications Acetaminophen (Acetaminophen 325 Mg Tablet) 650 mg PO Q6H PRN PRN PRN Reason: Pain Score 1-10/Temp > 100.7 F Al Hydroxide/Mg Hydroxide (Mag Hydrox/Al Hydrox/Simeth 30 Ml Udc) 30 ml PO Q6H PRN PRN PRN Reason: Gastric Burning Albuterol Sulfate (Albuterol 2.5 Mg/3 Ml Vial.Neb.) 2.5 mg INHALATION Q2H PRN PRN PRN Reason: Dyspnea, wheezing Ascorbic Acid (Ascorbic Acid 500 Mg Tablet) 500 mg PO DAILY [facility] Aspirin (Aspirin 81 Mg Tab.Chew) 81 mg PO DAILY@0800 [facility] Last Admin: 09/23/20 08:22 Dose: 81 mg Documented by: Citalopram Hydrobromide (Citalopram 20 Mg Tablet) 20 mg PO DAILY [facility] Docusate Sodium (Docusate Sodium 100 Mg Capsule) 100 mg PO DAILY [facility] Enoxaparin Sodium (Enoxaparin 40 Mg/0.4 Ml Syringe) 40 mg SC DAILY [facility] Guaifenesin (Guaifenesin 10 Ml Udc (200mg/10ml)) 20 ml PO Q4H PRN PRN PRN Reason: COUGH Hydralazine HCl (Hydralazine 20 Mg/Ml Vial) 10 mg IV Q4H PRN PRN PRN Reason: SBP > 160 Hydromorphone HCl (Hydromorphone 0.5 Mg/0.5 Ml Syringe) 0.5 mg IV Q4H PRN PRN PRN Reason: Pain Score 6-10 Last Admin: 09/23/20 08:16 Dose: 0.5 mg Documented by: Sodium Chloride () 1,000 mls @ 125 mls/hr IV .Q8H [facility] Last Infusion: 09/23/20 07:39 Dose: 125 mls/hr Documented by: Piperacillin Sod/Tazobactam (Sod 3.375 gm/ Sodium Chloride) 50 mls @ 12.5 mls/hr IV Q8 [facility] Last Admin: 09/23/20 05:33 Dose: 12.5 mls/hr Documented by: Pantoprazole Sodium 40 mg/ (Sodium Chloride) 110 mls @ 330 mls/hr IV Q12 [facility] Last Infusion: 09/22/20 22:49 Dose: Infused Documented by: Sodium Chloride () 250 mls @ 15 mls/hr IV .[id number] PRN PRN Reason: Saline Flush Sodium Chloride () 250 mls @ 15 mls/hr IV .[id number] PRN PRN Reason: Additional IVPB Infusion Lisinopril (Lisinopril 10 Mg Tablet) 10 mg PO DAILY [facility] Ondansetron HCl (Ondansetron 4 Mg/2 Ml Vial) 4 mg IV Q8H PRN PRN PRN Reason: NAUSEA/VOMITING Oxycodone HCl (Oxycodone 5 Mg Tablet) 5 mg PO Q4H PRN PRN PRN Reason: Pain Score 4-5 Last Admin: 09/23/20 02:57 Dose: 5 mg Documented by: Pravastatin Sodium (Pravastatin 80 Mg Tablet) 80 mg PO DAILY@2200 [facility] Last Admin: 09/22/20 22:29 Dose: 80 mg Documented by: Prochlorperazine Edisylate (Prochlorperazine 10 Mg/2 Ml Vial) 5 mg IV Q4H PRN PRN PRN Reason: Breakthrough nausea/vomiting Sodium Chloride (0.9% Saline Lock 10 Ml Syringe) 10 - 40 ml IV UD PRN PRN Reason: SALINE FLUSH Last Admin: 09/23/20 08:09 Dose: 10 ml Documented by: Temazepam (Temazepam 15 Mg Capsule) 15 mg PO QHS PRN PRN PRN Reason: INSOMNIA Throat Lozenges (Benzocaine/Menthol 1 Lozenge) 1 lozenge MUCOUS MEM Q2H PRN PRN PRN Reason: SORE THROAT Assessment/Plan All Active Problems Diverticulitis (Acute) I have been consulted in conjunction with Dr. Salmon. Impression: Acute diverticulitis Plan: I have discussed this patient with Dr. Salmon. Recommend IV antibiotics, IV fluids, keep NPO and conservative measures. I have discussed with the patient that if her symptoms fail with conservative measures, surgical intervention may be recommended. Patient has had the opportunity to ask and have questions answered. Patient verbally understands and agrees with the plan. Thank you for allowing us to participate in this patient's care. Office Visits / Consults: [id number] IP Consult L3
[2020-09-23 08:54] VITALS: BP 126/54; PULSE 63; RESP 18; TEMP 37.1; O2SAT 98
[2020-09-23] MEDS: Docusate Sodium 100 MG Capsule PO (10:46)
[2020-09-23] MEDS: Lisinopril 10 MG Tablet PO (10:46)
[2020-09-23] MEDS: Enoxaparin 40 MG/0.4 ML Syringe SC (10:46)
[2020-09-23] MEDS: Ascorbic Acid 500 MG Tablet PO (10:46)
[2020-09-23] MEDS: Citalopram 20 MG Tablet PO (10:46)
[2020-09-23] MEDS: BENZOCAINE/MENTHOL 1 LOZENGE MUCOUS MEM (10:55)
[2020-09-23 12:22] LABS: Magnesium 2.1 mg/dL (1.6-2.6)
--- NOTE | 2020-09-23 13:06 | CHAPLAIN ---
Type of Pastoral Visit _x__ Initial Visit ___ Follow-up Visit ___ On-call Visit ___ General Patient Visit ___ Spiritual Assessment ___ Family Conference ___ Bereavement ___ Rapid Response ___ Code Blue ___ Other (describe below) Pastoral Care Referral From _x__ Patient ___ Family ___ Nurse ___ Physician ___ Chips Screen Tender ___ Coordinate Measuring Machine Operator ___ Other (describe below) Sacrament/Intervention _x__ Active listening ___ Anointing ___ Moravian ___ Bereavement ___ Communion _x__ [place] exploration ___ _x__ Life review _x__ Prayer ___ Reconciliation ___ Sacrament of Sick ___ Supportive presence ___ Wedding ___ Other (describe below) Pastoral Comments
[2020-09-23 16:03] VITALS: BP 122/87; PULSE 79; RESP 18; TEMP 37; O2SAT 98
[2020-09-23] MEDS: Pravastatin 80 MG Tablet PO (21:42)
[2020-09-23 21:43] VITALS: BP 100/88; PULSE 74; RESP 18; TEMP 36.7; O2SAT 95
[2020-09-24] MEDS: 0.9% Normal Saline 1,000 ML 125 ML IV ×2 (00:52→09:22)
[2020-09-24] MEDS: Acetaminophen 325 MG Tablet 650 MG PO ×3 (00:53→22:32)
[2020-09-24 02:06] VITALS: BP 113/41; PULSE 70; RESP 18; TEMP 36.7; O2SAT 97
[2020-09-24 06:02] LABS: Absolute Lymphocyte Count 1.64 X10^3/uL (0.83-4.51); Absolute Neutrophil Count 3.8 X10^3/uL (2.0-7.7); Basophil# 0.03 X10^3/uL; Basophil% 0.5 % (0-1); Eosinophil# 0.11 X10^3/uL; Eosinophils% 1.8 % (0-5); Hematocrit 35.3 % (37-47); Hemoglobin 11.2 g/dL (12.0-15.0); Lymphocyte # 1.64 X10^3/ul (4.0); Lymphocyte % 27.2 % (19-41); Mean Corp Hgb Conc 31.7 g/dL (32-36); Mean Corpuscular Hgb 31.5 pg (27.0-32.0); Mean Corpuscular Volume 99.4 fL (81-99); Mean Platelet Vol. 10.1 fl (6.2-12.0); Monocyte# 0.39 X10^3/uL; Monocyte% 6.5 % (0-10); NRBC Flagged by Analyzer 0 % (0-5); Neutrophil # 3.82 X10^3/uL (2.7-7.7); Neutrophil % 63.5 % (47-70); Platelet Count 196 K/mm3 (150-450); RBC Distribution Width CV 12.2 % (11.6-14.6); RBC Distribution Width SD 45.1 fl (35.1-43.9); Red Blood Count 3.55 M/mm3 (4.2-5.4)
[2020-09-24 06:42] LABS: Anion Gap 6 (5-15); BUN 9 mg/dL (7-18); BUN/Creat Ratio 13.9 RATIO (10-20); Calcium,Total 8.3 mg/dL (8.5-10.1); Chloride 109 mmol/L (98-107); Creatinine, Serum 0.65 mg/dL (0.55-1.02); EST Glomerular Filtration Rate 100 mL/min (>60); Est Glom Filt Rate - Afr Amer 121 mL/min (>60); Estimated Creatinine Clearance 67.76 ml/min; Glucose 64 mg/dL (74-106); Potassium 3.9 mmol/L (3.5-5.1); Sodium Level 139 mmol/L (136-145)
[2020-09-24 08:10] VITALS: BP 122/59; PULSE 65; RESP 16; TEMP 36.3; O2SAT 98
--- NOTE | 2020-09-24 10:01 | PCM.PN.SRG ---
Patient Problems: Active and Suspected Problems Diverticulitis (Acute) Subjective: Patient's abdominal pain is much improved, patient has been taking some Tylenol did get started on clears had some liquid stool today. - Physical Exam Vitals/I&O's: Vital Signs Temp Pulse Resp BP Pulse Ox 97.3 F L 65 16 122/59 H 98 09/24/20 08:10 09/24/20 08:10 09/24/20 08:10 09/24/20 08:10 09/24/20 08:10 Oxygen Delivery Method Room Air Weight: 160 lb Body Mass Index (BMI) 31.2 Intake and Output for Last 24 Hours 09/22/20 09/23/20 09/24/20 23:59 23:59 23:59 Intake Total 1160 / 1160 1720.00 / 1720.00 2276.67 / 2276.67 Output Total 100 / 100 300 / 300 1000 / 1000 Balance 1060 / 1060 1420.00 / 1420.00 1276.67 / 1276.67 General: Alert, Oriented x3, Cooperative, No apparent distress HEENT: Atraumatic Lungs: Normal air movement Cardiovascular: Regular rate Abdomen: Soft, Non-Distended, Tender - Mild left lower quadrant, no peritoneal signs Extremities: No clubbing, No cyanosis, No edema Laboratory Results 09/23/20 06:18: Magnesium 2.1 09/24/20 05:30: WBC 6.0, RBC 3.55 L, Hgb 11.2 L, Hct 35.3 L, MCV 99.4 H, MCH 31.5, MCHC 31.7 L, RDW Std Deviation 45.1 H, RDW Coeff of Jaylen 12.2, Plt Count 196, MPV 10.1, Immature Gran % (Auto) 0.500, Neut % (Auto) 63.5, Lymph % (Auto) 27.2, [place] % (Auto) 6.5, Eos % (Auto) 1.8, Baso % (Auto) 0.5, Absolute Neuts (auto) 3.8, Absolute Lymphs (auto) 1.64, Nucleated RBC % 0 09/24/20 05:30: Sodium 139, Potassium 3.9, Chloride 109 H, Carbon Dioxide 24.0, Anion Gap 6, BUN 9, Creatinine 0.65, Estim Creat Clear Calc 67.76, Est GFR (MDRD) Af Amer 121, Est GFR (MDRD) Non-Af 100, BUN/Creatinine Ratio 13.9, Glucose 64 L, Calcium 8.3 L Current Medications Acetaminophen (Acetaminophen 325 Mg Tablet) 650 mg PO Q6H PRN PRN PRN Reason: Pain Score 1-10/Temp > 100.7 F Last Admin: 09/24/20 07:38 Dose: 650 mg Documented by: Al Hydroxide/Mg Hydroxide (Mag Hydrox/Al Hydrox/Simeth 30 Ml Udc) 30 ml PO Q6H PRN PRN PRN Reason: Gastric Burning Albuterol Sulfate (Albuterol 2.5 Mg/3 Ml Vial.Neb.) 2.5 mg INHALATION Q2H PRN PRN PRN Reason: Dyspnea, wheezing Ascorbic Acid (Ascorbic Acid 500 Mg Tablet) 500 mg PO DAILY [facility] Last Admin: 09/23/20 10:46 Dose: 500 mg Documented by: Aspirin (Aspirin 81 Mg Tab.Chew) 81 mg PO DAILY@0800 [facility] Last Admin: 09/23/20 08:22 Dose: 81 mg Documented by: Citalopram Hydrobromide (Citalopram 20 Mg Tablet) 20 mg PO DAILY [facility] Last Admin: 09/23/20 10:46 Dose: 20 mg Documented by: Docusate Sodium (Docusate Sodium 100 Mg Capsule) 100 mg PO DAILY [facility] Last Admin: 09/23/20 10:46 Dose: 100 mg Documented by: Enoxaparin Sodium (Enoxaparin 40 Mg/0.4 Ml Syringe) 40 mg SC DAILY [facility] Last Admin: 09/23/20 10:46 Dose: 40 mg Documented by: Guaifenesin (Guaifenesin 10 Ml Udc (200mg/10ml)) 20 ml PO Q4H PRN PRN PRN Reason: COUGH Hydralazine HCl (Hydralazine 20 Mg/Ml Vial) 10 mg IV Q4H PRN PRN PRN Reason: SBP > 160 Hydromorphone HCl (Hydromorphone 0.5 Mg/0.5 Ml Syringe) 0.5 mg IV Q4H PRN PRN PRN Reason: Pain Score 6-10 Last Admin: 09/23/20 13:49 Dose: 0.5 mg Documented by: Sodium Chloride () 1,000 mls @ 125 mls/hr IV .Q8H [facility] Last Admin: 09/24/20 09:22 Dose: 125 mls/hr Documented by: Piperacillin Sod/Tazobactam (Sod 3.375 gm/ Sodium Chloride) 50 mls @ 12.5 mls/hr IV Q8 [facility] Last Infusion: 09/24/20 09:43 Dose: Infused Documented by: Pantoprazole Sodium 40 mg/ (Sodium Chloride) 110 mls @ 330 mls/hr IV Q12 [facility] Last Infusion: 09/24/20 09:43 Dose: Infused Documented by: Sodium Chloride () 250 mls @ 15 mls/hr IV .[id number] PRN PRN Reason: Saline Flush Sodium Chloride () 250 mls @ 15 mls/hr IV .[id number] PRN PRN Reason: Additional IVPB Infusion Lisinopril (Lisinopril 10 Mg Tablet) 10 mg PO DAILY [facility] Last Admin: 09/23/20 10:46 Dose: 10 mg Documented by: Ondansetron HCl (Ondansetron 4 Mg/2 Ml Vial) 4 mg IV Q8H PRN PRN PRN Reason: NAUSEA/VOMITING Oxycodone HCl (Oxycodone 5 Mg Tablet) 5 mg PO Q4H PRN PRN PRN Reason: Pain Score 4-5 Last Admin: 09/23/20 10:55 Dose: 5 mg Documented by: Pravastatin Sodium (Pravastatin 80 Mg Tablet) 80 mg PO DAILY@2200 [facility] Last Admin: 09/23/20 21:42 Dose: 80 mg Documented by: Prochlorperazine Edisylate (Prochlorperazine 10 Mg/2 Ml Vial) 5 mg IV Q4H PRN PRN PRN Reason: Breakthrough nausea/vomiting Sodium Chloride (0.9% Saline Lock 10 Ml Syringe) 10 - 40 ml IV UD PRN PRN Reason: SALINE FLUSH Last Admin: 09/23/20 08:09 Dose: 10 ml Documented by: Temazepam (Temazepam 15 Mg Capsule) 15 mg PO QHS PRN PRN PRN Reason: INSOMNIA Throat Lozenges (Benzocaine/Menthol 1 Lozenge) 1 lozenge MUCOUS MEM Q2H PRN PRN PRN Reason: SORE THROAT Last Admin: 09/23/20 10:55 Dose: 1 lozenge Documented by: Medical Necessity - Tobacco Use Smoking Status: Current every day smoker Tobacco Use: Non-smoker Assessment/Plan All Active Problems Diverticulitis (Acute) 59-year-old female with diverticulitis. Started on clears today okay to advance to full's later today if patient tolerates. Continue IV Zosyn possible DC tomorrow if patient's pain continues to improve and patient tolerates diet.Patient would be DC'd on a low fiber diet for about 4 to 5 weeks. Also DC'd with antibiotics Augmentin 875 mg p.o. twice daily for total antibiotics of [address] Alex Salmon M.D. Pager: [phone] [facility] [address] [place] [address], [facility] [place], [address] [place] [id number] Office: [phone] Inpatient E&M: [id number] [facility] Hosp L1
[2020-09-24] MEDS: Ascorbic Acid 500 MG Tablet PO (10:51)
[2020-09-24] MEDS: Aspirin 81 MG TAB.CHEW PO (10:51)
[2020-09-24] MEDS: Lisinopril 10 MG Tablet PO (10:51)
[2020-09-24] MEDS: Citalopram 20 MG Tablet PO (10:51)
[2020-09-24] MEDS: Enoxaparin 40 MG/0.4 ML Syringe SC (10:51)
[2020-09-24 12:00] VITALS: BP 132/22; PULSE 62; RESP 20; TEMP 37.1; O2SAT 99
--- NOTE | 2020-09-24 15:50 | PN_ITS ---
Patient Problems: Active and Suspected Problems Diverticulitis (Acute) Reason for Visit: Low for acute on recurrent diverticulitis. Objective: Patient had bowel movement and currently having liquid bowel movement 3-4 times. Patient requested for Imodium. No fever or chills. Patient heart rate and blo od pressure controlled. Complain of mild left lower quadrant abdominal pain. Physical exam General: Alert, Oriented x3, Cooperative HEENT: Atraumatic, PERRLA, EOMI, Normocephalic Oral: No Gingival or Mucosal Lesions/ Ulcerations Neck: Supple, No JVD, Negative Carotid Bruits Lungs: Air entry diminished in bilateral lung bases. No crepitation/rhonchi Cardiovascular: Regular rate, Regular Rhythm, Normal S1, Normal S2, No murmurs Abdomen: Soft, mild left lower quadrant tenderness. No palpable mass. Bowel Sounds Present, Non-Distended : No renal angle tenderness. No suprapubic tenderness. Extremities: No edema, Capillary Refill Less than 3 Seconds Skin: No rashes, No breakdown Musculoskeletal: No Tenderness to Palpation of Joints or Extremities Neurological: Cranial nerves II-XII grossly intact, Deep Tendon Reflexes 2+/4 and Symmetrical, Neuro grossly intact Psych/Mental Status: Normal Affect, Appropriate. Vitals/I&O's: Vital Signs Temp Pulse Resp BP Pulse Ox 98.8 F 62 20 H 132/22 H 99 09/24/20 12:00 09/24/20 12:00 09/24/20 12:00 09/24/20 12:00 09/24/20 12:00 Oxygen Delivery Method Room Air Weight: 160 lb Body Mass Index (BMI) 31.2 Intake and Output for Last 24 Hours 09/22/20 09/23/20 09/24/20 23:59 23:59 23:59 Intake Total 1160 / 1160 1720.00 / 1720.00 3055.42 / 3055.42 Output Total 100 / 100 300 / 300 1700 / 1700 Balance 1060 / 1060 1420.00 / 1420.00 1355.42 / 1355.42 Laboratory Results 09/24/20 05:30: WBC 6.0, RBC 3.55 L, Hgb 11.2 L, Hct 35.3 L, MCV 99.4 H, MCH 31.5, MCHC 31.7 L, RDW Std Deviation 45.1 H, RDW Coeff of Jaylen 12.2, Plt Count 196, MPV 10.1, Immature Gran % (Auto) 0.500, Neut % (Auto) 63.5, Lymph % (Auto) 27.2, [place] % (Auto) 6.5, Eos % (Auto) 1.8, Baso % (Auto) 0.5, Absolute Neuts (auto) 3.8, Absolute Lymphs (auto) 1.64, Nucleated RBC % 0 09/24/20 05:30: Sodium 139, Potassium 3.9, Chloride 109 H, Carbon Dioxide 24.0, Anion Gap 6, BUN 9, Creatinine 0.65, Estim Creat Clear Calc 67.76, Est GFR (MDRD) Af Amer 121, Est GFR (MDRD) Non-Af 100, BUN/Creatinine Ratio 13.9, Glucose 64 L, Calcium 8.3 L Current Medications Acetaminophen (Acetaminophen 325 Mg Tablet) 650 mg PO Q6H PRN PRN PRN Reason: Pain Score 1-10/Temp > 100.7 F Last Admin: 09/24/20 07:38 Dose: 650 mg Documented by: Al Hydroxide/Mg Hydroxide (Mag Hydrox/Al Hydrox/Simeth 30 Ml Udc) 30 ml PO Q6H PRN PRN PRN Reason: Gastric Burning Albuterol Sulfate (Albuterol 2.5 Mg/3 Ml Vial.Neb.) 2.5 mg INHALATION Q2H PRN PRN PRN Reason: Dyspnea, wheezing Ascorbic Acid (Ascorbic Acid 500 Mg Tablet) 500 mg PO DAILY [facility] Last Admin: 09/24/20 10:51 Dose: 500 mg Documented by: Aspirin (Aspirin 81 Mg Tab.Chew) 81 mg PO DAILY@0800 [facility] Last Admin: 09/24/20 10:51 Dose: 81 mg Documented by: Citalopram Hydrobromide (Citalopram 20 Mg Tablet) 20 mg PO DAILY [facility] Last Admin: 09/24/20 10:51 Dose: 20 mg Documented by: Docusate Sodium (Docusate Sodium 100 Mg Capsule) 100 mg PO DAILY [facility] Last Admin: 09/24/20 10:51 Dose: Not Given Documented by: Enoxaparin Sodium (Enoxaparin 40 Mg/0.4 Ml Syringe) 40 mg SC DAILY [facility] Last Admin: 09/24/20 10:51 Dose: 40 mg Documented by: Guaifenesin (Guaifenesin 10 Ml Udc (200mg/10ml)) 20 ml PO Q4H PRN PRN PRN Reason: COUGH Hydralazine HCl (Hydralazine 20 Mg/Ml Vial) 10 mg IV Q4H PRN PRN PRN Reason: SBP > 160 Hydromorphone HCl (Hydromorphone 0.5 Mg/0.5 Ml Syringe) 0.5 mg IV Q4H PRN PRN PRN Reason: Pain Score 6-10 Last Admin: 09/23/20 13:49 Dose: 0.5 mg Documented by: Sodium Chloride () 1,000 mls @ 75 mls/hr IV .[id number] [facility] Last Infusion: 09/24/20 14:25 Dose: 75 mls/hr Documented by: Piperacillin Sod/Tazobactam (Sod 3.375 gm/ Sodium Chloride) 50 mls @ 12.5 mls/hr IV Q8 [facility] Last Admin: 09/24/20 14:24 Dose: 12.5 mls/hr Documented by: Pantoprazole Sodium 40 mg/ (Sodium Chloride) 110 mls @ 330 mls/hr IV Q12 [facility] Last Infusion: 09/24/20 09:43 Dose: Infused Documented by: Sodium Chloride () 250 mls @ 15 mls/hr IV .[id number] PRN PRN Reason: Saline Flush Sodium Chloride () 250 mls @ 15 mls/hr IV .[id number] PRN PRN Reason: Additional IVPB Infusion Lactobacillus Acidophilus (Lactobacillus Acidophilus) 2 tablet PO BID [facility] Lisinopril (Lisinopril 10 Mg Tablet) 10 mg PO DAILY [facility] Last Admin: 09/24/20 10:51 Dose: 10 mg Documented by: Ondansetron HCl (Ondansetron 4 Mg/2 Ml Vial) 4 mg IV Q8H PRN PRN PRN Reason: NAUSEA/VOMITING Oxycodone HCl (Oxycodone 5 Mg Tablet) 5 mg PO Q4H PRN PRN PRN Reason: Pain Score 4-5 Last Admin: 09/23/20 10:55 Dose: 5 mg Documented by: Pravastatin Sodium (Pravastatin 80 Mg Tablet) 80 mg PO DAILY@2200 [facility] Last Admin: 09/23/20 21:42 Dose: 80 mg Documented by: Prochlorperazine Edisylate (Prochlorperazine 10 Mg/2 Ml Vial) 5 mg IV Q4H PRN PRN PRN Reason: Breakthrough nausea/vomiting Sodium Chloride (0.9% Saline Lock 10 Ml Syringe) 10 - 40 ml IV UD PRN PRN Reason: SALINE FLUSH Last Admin: 09/23/20 08:09 Dose: 10 ml Documented by: Temazepam (Temazepam 15 Mg Capsule) 15 mg PO QHS PRN PRN PRN Reason: INSOMNIA Throat Lozenges (Benzocaine/Menthol 1 Lozenge) 1 lozenge MUCOUS MEM Q2H PRN PRN PRN Reason: SORE THROAT Last Admin: 09/23/20 10:55 Dose: 1 lozenge Documented by: STROKE Vital Signs/Narrative: Vital Signs Temp Pulse Resp BP Pulse Ox 09/24/20 12:00 98.8 F 62 20 H 132/22 H 99 Medical Necessity - Tobacco Use Smoking Status: Current every day smoker Tobacco Use: Non-smoker Assessment/Plan All Active Problems Diverticulitis (Acute) The patient is a 59 y/o F with history of hypertension, dyslipidemia and GERD was admitted with severe left lower quadrant abdominal pain, 10/10 intensity along with nausea without vomiting and fever with chills. CT abdomen and pelvis showed moderate Acute sigmoid colon with pericolonic inflammatory stranding. No free air or abscess reported. 1. Acute proximal sigmoid Diverticulitis: [place] [facility] No leukocytosis. H&H is stable 1.7/38.2. Low alkaline phosphatase. K 3.5. Continue IV fluid. Monitor intake and output. N.p.o. except sips. On IV Zosyn. Other supportive medications including antiemetics, PPI and pain. Patient seen by Dr. Salmon and agree with the plan of conservative management. And had colonoscopy about 5 years ago and had polyps removed which were benign. 09/24: Serum K and magnesium level normal. Patient having liquid bowel movement. Stool for C. difficile ordered. Lactobacillus ordered. If C. difficile is negative, Imodium can be given for symptomatic relief. 2. Hypertension: Continue lisinopril, hold hydrochlorothiazide. Blood pressure is controlled. 3. Hyperlipidemia: Continue home statin regimen. 4. Anxiety and depression: continue patient home Celexa regimen. 5. Obesity: Weight loss and lifestyle changes encouraged. 6. GERD: Maintain on PPI. 7. DVT prophylaxis: SCDs, Lovenox. Clinical Impression(s) from Imaging Studies Abdomen/Pelvis CT 09/22/20 17:59 IMPRESSION: 1. Mild to moderate proximal sigmoid colon the proximal sigmoid colon with surrounding pericolonic inflammatory stranding. Moderate diverticula of the sigmoid colon reidentified. The remaining colonic loops are unremarkable. No free air or abscess. Laboratory Results 09/24/20 05:30: WBC 6.0, RBC 3.55 L, Hgb 11.2 L, Hct 35.3 L, MCV 99.4 H, MCH 31.5, MCHC 31.7 L, RDW Std Deviation 45.1 H, RDW Coeff of Jaylen 12.2, Plt Count 196, MPV 10.1, Immature Gran % (Auto) 0.500, Neut % (Auto) 63.5, Lymph % (Auto) 27.2, [place] % (Auto) 6.5, Eos % (Auto) 1.8, Baso % (Auto) 0.5, Absolute Neuts (auto) 3.8, Absolute Lymphs (auto) 1.64, Nucleated RBC % 0 09/24/20 05:30: Sodium 139, Potassium 3.9, Chloride 109 H, Carbon Dioxide 24.0, Anion Gap 6, BUN 9, Creatinine 0.65, Estim Creat Clear Calc 67.76, Est GFR (MDRD) Af Amer 121, Est GFR (MDRD) Non-Af 100, BUN/Creatinine Ratio 13.9, Glucose 64 L, Calcium 8.3 L Inpatient E&M: [id number] Subs Hosp L2
[2020-09-24 20:20] VITALS: BP 116/96; PULSE 74; RESP 18; TEMP 36.8; O2SAT 98
[2020-09-24] MEDS: 0.9% Normal Saline 1,000 ML 75 ML IV (21:53)
[2020-09-24] MEDS: Pravastatin 80 MG Tablet PO (22:32)
[2020-09-25 03:17] VITALS: BP 154/68; PULSE 60; RESP 18; TEMP 36.6; O2SAT 99
[2020-09-25 06:14] LABS: Absolute Lymphocyte Count 1.19 X10^3/uL (0.83-4.51); Absolute Neutrophil Count 1.9 X10^3/uL (2.0-7.7); Basophil# 0.02 X10^3/uL; Basophil% 0.5 % (0-1); Eosinophil# 0.21 X10^3/uL; Eosinophils% 5.7 % (0-5); Hematocrit 36.6 % (37-47); Hemoglobin 11.9 g/dL (12.0-15.0); Lymphocyte # 1.19 X10^3/ul (4.0); Lymphocyte % 32.3 % (19-41); Mean Corp Hgb Conc 32.5 g/dL (32-36); Mean Corpuscular Hgb 31.1 pg (27.0-32.0); Mean Corpuscular Volume 95.6 fL (81-99); Mean Platelet Vol. 10.3 fl (6.2-12.0); Monocyte# 0.32 X10^3/uL; Monocyte% 8.7 % (0-10); NRBC Flagged by Analyzer 0 % (0-5); Neutrophil # 1.93 X10^3/uL (2.7-7.7); Neutrophil % 52.5 % (47-70); Platelet Count 235 K/mm3 (150-450); RBC Distribution Width CV 12.4 % (11.6-14.6); RBC Distribution Width SD 42.6 fl (35.1-43.9); Red Blood Count 3.83 M/mm3 (4.2-5.4); White Blood Count 3.7 K/mm3 (4.4-11.0)
[2020-09-25 06:38] LABS: Anion Gap 2 (5-15); BUN 7 mg/dL (7-18); Calcium,Total 8.4 mg/dL (8.5-10.1); Chloride 112 mmol/L (98-107); EST Glomerular Filtration Rate 91 mL/min (>60); Est Glom Filt Rate - Afr Amer 110 mL/min (>60); Estimated Creatinine Clearance 62.92 ml/min; Glucose 85 mg/dL (74-106); Potassium 3.7 mmol/L (3.5-5.1); Sodium Level 142 mmol/L (136-145)
[2020-09-25 08:15] VITALS: BP 143/67; PULSE 57; RESP 16; TEMP 36.8; O2SAT 99
--- NOTE | 2020-09-25 08:32 | PN.SURG_ITS ---
Patient Problems: Active and Suspected Problems Diverticulitis (Acute) Subjective: juan liquid diet, still has some LLQ but improving and only taking tylenol, +diarrhea- c.diff neg-like from abx - Physical Exam Vitals/I&O's: Vital Signs Temp Pulse Resp BP Pulse Ox 98.3 F 57 L 16 143/67 H 99 09/25/20 08:15 09/25/20 08:15 09/25/20 08:15 09/25/20 08:15 09/25/20 08:15 Oxygen Delivery Method Room Air Weight: 160 lb Body Mass Index (BMI) 31.2 Intake and Output for Last 24 Hours 09/23/20 09/24/20 09/25/20 23:59 23:59 23:59 Intake Total 1720.00 / 1720.00 4593.42 / 4593.42 397.5 / 397.5 Output Total 300 / 300 2300 / 2300 Balance 1420.00 / 1420.00 2293.42 / 2293.42 397.5 / 397.5 General: Alert, Oriented x3, Cooperative, No apparent distress HEENT: Atraumatic Lungs: Normal air movement Cardiovascular: Regular rate Abdomen: Soft, Non-Distended, Tender - LLq no PS Extremities: No clubbing, No cyanosis, No edema Microbiology Past 72 Hours 09/24/20 15:05 Stool C. difficile DNA Amplification - Final Laboratory Results 09/25/20 05:50: WBC 3.7 L, RBC 3.83 L, Hgb 11.9 L, Hct 36.6 L, MCV 95.6, MCH 31.1, MCHC 32.5, RDW Std Deviation 42.6, RDW Coeff of Jaylen 12.4, Plt Count 235, MPV 10.3, Immature Gran % (Auto) 0.300, Neut % (Auto) 52.5, Lymph % (Auto) 32.3, [place] % (Auto) 8.7, Eos % (Auto) 5.7 H, Baso % (Auto) 0.5, Absolute Neuts (auto) 1.9 L, Absolute Lymphs (auto) 1.19, Nucleated RBC % 0 09/25/20 05:50: Sodium 142, Potassium 3.7, Chloride 112 H, Carbon Dioxide 28.0, Anion Gap 2 L, BUN 7, Creatinine 0.70, Estim Creat Clear Calc 62.92, Est GFR (MDRD) Af Amer 110, Est GFR (MDRD) Non-Af 91, BUN/Creatinine Ratio 10.0, Glucose 85, Calcium 8.4 L Current Medications Acetaminophen (Acetaminophen 325 Mg Tablet) 650 mg PO Q6H PRN PRN PRN Reason: Pain Score 1-10/Temp > 100.7 F Last Admin: 09/24/20 22:32 Dose: 650 mg Documented by: Al Hydroxide/Mg Hydroxide (Mag Hydrox/Al Hydrox/Simeth 30 Ml Udc) 30 ml PO Q6H PRN PRN PRN Reason: Gastric Burning Albuterol Sulfate (Albuterol 2.5 Mg/3 Ml Vial.Neb.) 2.5 mg INHALATION Q2H PRN PRN PRN Reason: Dyspnea, wheezing Ascorbic Acid (Ascorbic Acid 500 Mg Tablet) 500 mg PO DAILY [facility] Last Admin: 09/24/20 10:51 Dose: 500 mg Documented by: Aspirin (Aspirin 81 Mg Tab.Chew) 81 mg PO DAILY@0800 [facility] Last Admin: 09/24/20 10:51 Dose: 81 mg Documented by: Citalopram Hydrobromide (Citalopram 20 Mg Tablet) 20 mg PO DAILY [facility] Last Admin: 09/24/20 10:51 Dose: 20 mg Documented by: Docusate Sodium (Docusate Sodium 100 Mg Capsule) 100 mg PO DAILY [facility] Last Admin: 09/24/20 10:51 Dose: Not Given Documented by: Enoxaparin Sodium (Enoxaparin 40 Mg/0.4 Ml Syringe) 40 mg SC DAILY [facility] Last Admin: 09/24/20 10:51 Dose: 40 mg Documented by: Guaifenesin (Guaifenesin 10 Ml Udc (200mg/10ml)) 20 ml PO Q4H PRN PRN PRN Reason: COUGH Hydralazine HCl (Hydralazine 20 Mg/Ml Vial) 10 mg IV Q4H PRN PRN PRN Reason: SBP > 160 Sodium Chloride () 1,000 mls @ 75 mls/hr IV .[id number] [facility] Last Infusion: 09/24/20 22:48 Dose: 75 mls/hr Documented by: Piperacillin Sod/Tazobactam (Sod 3.375 gm/ Sodium Chloride) 50 mls @ 12.5 mls/hr IV Q8 [facility] Last Admin: 09/25/20 05:31 Dose: 12.5 mls/hr Documented by: Pantoprazole Sodium 40 mg/ (Sodium Chloride) 110 mls @ 330 mls/hr IV Q12 [facility] Last Infusion: 09/24/20 22:13 Dose: Infused Documented by: Sodium Chloride () 250 mls @ 15 mls/hr IV .[id number] PRN PRN Reason: Saline Flush Last Infusion: 09/25/20 05:57 Dose: 0 mls/hr Documented by: Sodium Chloride () 250 mls @ 15 mls/hr IV .[id number] PRN PRN Reason: Additional IVPB Infusion Lactobacillus Acidophilus (Lactobacillus Acidophilus) 2 tablet PO BID [facility] Last Admin: 09/24/20 22:32 Dose: 2 tablet Documented by: Lisinopril (Lisinopril 10 Mg Tablet) 10 mg PO DAILY [facility] Last Admin: 09/24/20 10:51 Dose: 10 mg Documented by: Ondansetron HCl (Ondansetron 4 Mg/2 Ml Vial) 4 mg IV Q8H PRN PRN PRN Reason: NAUSEA/VOMITING Oxycodone HCl (Oxycodone 5 Mg Tablet) 5 mg PO Q4H PRN PRN PRN Reason: Pain Score 4-5 Last Admin: 09/23/20 10:55 Dose: 5 mg Documented by: Pravastatin Sodium (Pravastatin 80 Mg Tablet) 80 mg PO DAILY@2200 [facility] Last Admin: 09/24/20 22:32 Dose: 80 mg Documented by: Prochlorperazine Edisylate (Prochlorperazine 10 Mg/2 Ml Vial) 5 mg IV Q4H PRN PRN PRN Reason: Breakthrough nausea/vomiting Sodium Chloride (0.9% Saline Lock 10 Ml Syringe) 10 - 40 ml IV UD PRN PRN Reason: SALINE FLUSH Last Admin: 09/23/20 08:09 Dose: 10 ml Documented by: Temazepam (Temazepam 15 Mg Capsule) 15 mg PO QHS PRN PRN PRN Reason: INSOMNIA Throat Lozenges (Benzocaine/Menthol 1 Lozenge) 1 lozenge MUCOUS MEM Q2H PRN PRN PRN Reason: SORE THROAT Last Admin: 09/23/20 10:55 Dose: 1 lozenge Documented by: Medical Necessity - Tobacco Use Smoking Status: Current every day smoker Tobacco Use: Non-smoker Assessment/Plan All Active Problems Diverticulitis (Acute) 59-year-old female with diverticulitis. on transitional diet. ok to d/c per surgery. Also DC'd with antibiotics Augmentin 875 mg p.o. twice daily for total antibiotics of [address] Alex Salmon M.D. Pager: [phone] [facility] [address] [place] [address], [facility], [address] [place] [address] Office: [phone] Inpatient E&M: [id number] Subs Hosp L1
[2020-09-25 09:55] VITALS: BP 129/70; PULSE 59; RESP 16; TEMP 37.2; O2SAT 98
[2020-09-25] MEDS: Aspirin 81 MG TAB.CHEW PO (10:01)
[2020-09-25] MEDS: Lisinopril 10 MG Tablet PO (10:03)
[2020-09-25] MEDS: Citalopram 20 MG Tablet PO (10:03)
[2020-09-25] MEDS: Ascorbic Acid 500 MG Tablet PO (10:04)
[2020-09-25] MEDS: Acetaminophen 325 MG Tablet 650 MG PO (10:04)
[2020-09-25] MEDS: Enoxaparin 40 MG/0.4 ML Syringe SC (10:05)
--- NOTE | 2020-09-25 10:05 | CASEMGMT ---
RN CM Face to Face with patient for initial transition planning/care coordination assessment. RN CM introduced self and role at [facility]. Patient sitting in chair, alert and oriented. Patient willing to participate in assessment and is able to answer all questions appropriately. Care providers, pharmacy, and demographics verified. Patient wishes to discharge home, denies need for home health at this time. Patient states she has no further needs or concerns at this time. CM to follow for discharge planning needs that may arise. PCP: Solomon Greer Specialists: MADHU Kumari [facility]erred [facility]acy: [facility] Insurance: [employer] Prescription Benefit: yes Living Will/HPOA: none LNOK: Living Arrangements: Patient lives with in a 3 story home. Patient states she is independent and able to ambulate stairs. Transportation: self, DME/HHC: Patient states she has BSC, cane, walker, and cpap at home. Patient denies previous HHC. Disposition Plan: Patient to discharge home with family support and follow-up plans in place. Sigrid HAMMONDS, RN, CM
--- NOTE | 2020-09-25 10:34 | PCM.DC ---
- Discharge Diagnoses Current Active Problems: Current Active and Chronic Problems Anxiety and depression (Chronic) Former tobacco use (Chronic) Obesity (BMI 30.0-34.9) (Chronic) Diverticulitis (Acute) Depression (Chronic) GERD (gastroesophageal reflux disease) (Chronic) Hyperlipemia (Chronic) Hypertension (Chronic) You will use the following diet at home:: Cardiac Your food should be the consistency of: Regular Discharge Activity: May Not Drive - for 1 week Weight Bearing Status: Weight bearing as tolerated Call your doctor if you observe: Fever of 101 or Higher, Coldness, Increased Pain, Numbness or Tingling, Change in Color, Inability to urinate, Inability to have a bowel movement, Using more than one pad per hour, Shortness of breath, Dizziness, Fainting spells, Swelling in the ankles, Chest pain, Prolonged hiccoughing, Increased palpitations (irregular heartbeat), Calf discomfort Allergies/Adverse Reactions: Allergies No Known Allergies Allergy (Verified 09/22/20 17:19) Medications to take at Discharge Citalopram [Celexa] 20 mg PO DAILY 04/15/16 Lisinopril/Hydrochlorothiazide [Zestoretic 08/17.5 Tablet] 1 tablet PO DAILY 04/15/16 Pravastatin [Pravachol] 80 mg PO DAILY 04/15/16 Aspirin [Aspirin, Baby] 81 mg PO DAILY@0800 02/19/17 Ascorbic Acid 500 mg PO DAILY 09/22/20 Multivitamin with Minerals [Multiple Vitamin] 1 tab PO DAILY 09/22/20 Omeprazole 20 mg PO DAILY 09/22/20 Amoxicillin/Potassium Clav [Augmentin 875-125 Tablet] 1 ea PO BID #14 tab 09/25/20 Lactobacillus Acidophilus [Acidophilus] 1 tab PO TID #60 tab 09/25/20 The following prescriptions were given: Lactobacillus Acidophilus [Acidophilus] 1 tab PO TID #60 tab [facility]: [facility] Amoxicillin/Potassium Clav [Augmentin 875-125 Tablet] 1 ea PO BID #14 tab Transmission Status: Pending to [facility] Primary Care Physician: Katie Greer, PA [Primary Care Provider] - Please follow up with your Primary Care Physician in: in 1-2 week Test Results: Test results from this visit will be discussed in further detail at your follow-up appointment, if applicable. Please Follow Up With: Petrona Salmon MD When: in 2-4 weeks
--- NOTE | 2020-09-25 10:36 | DS.PCM_ITS ---
Discharge Date and Diagnosis - Problem List Patient Problems: Active and Suspected Problems Diverticulitis (Acute) Date of Admission: 11/01/17 Date of Discharge: 09/25/20 - Primary Discharge Diagnosis Acute Problems: Active Problems Diverticulitis (Acute) - Secondary Discharge Diagnosis Chronic Problems: Chronic Problems Anxiety and depression (Chronic) Former tobacco use (Chronic) Obesity (BMI 30.0-34.9) (Chronic) Depression (Chronic) GERD (gastroesophageal reflux disease) (Chronic) Hyperlipemia (Chronic) Hypertension (Chronic) Hospital Course and Treatment Operations: None Summary of Care Provided: The patient is a 59 y/o F with history of hypertension, dyslipidemia and GERD was admitted with severe left lower quadrant abdominal pain, 10/10 intensity along with nausea without vomiting and fever with chills. CT abdomen and pelvis showed moderate Acute sigmoid colon diverticulitis with pericolonic inflammatory stranding. No free air or abscess reported. 1. Acute proximal sigmoid Diverticulitis: The patient was admitted on [facility] floor. No leukocytosis. H&H is stable 1.7/38.2. Low alkaline phosphatase. K 3.5. The patient was treated with IV fluid, initially n.p.o. and IV antibiotic Zosyn along with other supportive medications for nausea and vomiting and pain control. Patient seen by Dr. Salmon and agree with the plan of conservative management. And had colonoscopy about 5 years ago and had polyps removed which were benign. Serum K and magnesium level normal. Patient had liquid bowel movement which is much improved. Stool for C. difficile negative. Patient diarrhea improved on lactobacillus advised to continue it. 2. Hypertension: Continue lisinopril, hold hydrochlorothiazide. Blood pressure is controlled. 3. Hyperlipidemia: Continue home statin regimen. 4. Anxiety and depression: continue patient home Celexa regimen. 5. Obesity: Weight loss and lifestyle changes encouraged. 6. GERD: Maintain on PPI. 7. DVT prophylaxis: SCDs, Lovenox. Discharge medication reconciliation done. Discharge follow-up instructions completed. Discharge process discussed with the patient and all questions were answered to patient's satisfaction. Patient advised to follow-up with Dr. Salmon in 4 weeks to schedule follow-up colonoscopy. Total time spent, exact 35 minutes on discharge meds reconciliation, examination, coordination of care with nurses and ancillary staff, review of imaging and blood test and discussion with the patient on follow-up instructi ons Clinical Impression(s) from Imaging Studies Abdomen/Pelvis CT 09/22/20 17:59 IMPRESSION: 1. Mild to moderate proximal sigmoid colon the proximal sigmoid colon with surrounding pericolonic inflammatory stranding. Moderate diverticula of the sigmoid colon reidentified. The remaining colonic loops are unremarkable. No free air or abscess.F [] Patient Problems: Active and Suspected Problems Diverticulitis (Acute) Objective: Seen and examined. Patient diarrhea has resolved. She is taking lactobacillus and is helping it. Stool for C. difficile PCR negative. Physical exam General: Alert, Oriented x3, Cooperative HEENT: Atraumatic, PERRLA, EOMI, Normocephalic Oral: No Gingival or Mucosal Lesions/ Ulcerations Neck: Supple, No JVD, Negative Carotid Bruits Lungs: Air entry equal in bilateral lung bases. No crepitation/rhonchi Cardiovascular: Regular rate, Regular Rhythm, Normal S1, Normal S2, No murmurs Abdomen: Soft, mild left lower quadrant tenderness but has much improved. No palpable mass. Bowel Sounds Present, Non-Distended : No renal angle tenderness. No suprapubic tenderness. Extremities: No edema, Capillary Refill Less than 3 Seconds Skin: No rashes, No breakdown Musculoskeletal: No Tenderness to Palpation of Joints or Extremities Neurological: Cranial nerves II-XII grossly intact, Deep Tendon Reflexes 2+/4 and Symmetrical, Neuro grossly intact Psych/Mental Status: Normal Affect, Appropriate. - Physical Exam Vitals/I&O's: Vital Signs Temp Pulse Resp BP Pulse Ox 98.9 F 59 L 16 129/70 H 98 09/25/20 09:55 09/25/20 09:55 09/25/20 09:55 09/25/20 09:55 09/25/20 09:55 Oxygen Delivery Method Room Air Weight: 160 lb Body Mass Index (BMI) 31.2 Intake and Output for Last 24 Hours 09/23/20 09/24/20 09/25/20 23:59 23:59 23:59 Intake Total 1720.00 / 1720.00 4593.42 / 4593.42 1397.5 / 1397.5 Output Total 300 / 300 2300 / 2300 Balance 1420.00 / 1420.00 2293.42 / 2293.42 1397.5 / 1397.5 Microbiology Past 72 Hours 09/24/20 15:05 Stool C. difficile DNA Amplification - Final Laboratory Results 09/25/20 05:50: WBC 3.7 L, RBC 3.83 L, Hgb 11.9 L, Hct 36.6 L, MCV 95.6, MCH 31.1, MCHC 32.5, RDW Std Deviation 42.6, RDW Coeff of Jaylen 12.4, Plt Count 235, MPV 10.3, Immature Gran % (Auto) 0.300, Neut % (Auto) 52.5, Lymph % (Auto) 32.3, [place] % (Auto) 8.7, Eos % (Auto) 5.7 H, Baso % (Auto) 0.5, Absolute Neuts (auto) 1.9 L, Absolute Lymphs (auto) 1.19, Nucleated RBC % 0 09/25/20 05:50: Sodium 142, Potassium 3.7, Chloride 112 H, Carbon Dioxide 28.0, Anion Gap 2 L, BUN 7, Creatinine 0.70, Estim Creat Clear Calc 62.92, Est GFR (MDRD) Af Amer 110, Est GFR (MDRD) Non-Af 91, BUN/Creatinine Ratio 10.0, Glucose 85, Calcium 8.4 L Current Medications Acetaminophen (Acetaminophen 325 Mg Tablet) 650 mg PO Q6H PRN PRN PRN Reason: Pain Score 1-10/Temp > 100.7 F Last Admin: 09/25/20 10:04 Dose: 650 mg Documented by: Al Hydroxide/Mg Hydroxide (Mag Hydrox/Al Hydrox/Simeth 30 Ml Udc) 30 ml PO Q6H PRN PRN PRN Reason: Gastric Burning Albuterol Sulfate (Albuterol 2.5 Mg/3 Ml Vial.Neb.) 2.5 mg INHALATION Q2H PRN PRN PRN Reason: Dyspnea, wheezing Ascorbic Acid (Ascorbic Acid 500 Mg Tablet) 500 mg PO DAILY [facility] Last Admin: 09/25/20 10:04 Dose: 500 mg Documented by: Aspirin (Aspirin 81 Mg Tab.Chew) 81 mg PO DAILY@0800 [facility] Last Admin: 09/25/20 10:01 Dose: 81 mg Documented by: Citalopram Hydrobromide (Citalopram 20 Mg Tablet) 20 mg PO DAILY [facility] Last Admin: 09/25/20 10:03 Dose: 20 mg Documented by: Docusate Sodium (Docusate Sodium 100 Mg Capsule) 100 mg PO DAILY [facility] Last Admin: 09/25/20 10:04 Dose: Not Given Documented by: Enoxaparin Sodium (Enoxaparin 40 Mg/0.4 Ml Syringe) 40 mg SC DAILY [facility] Last Admin: 09/25/20 10:05 Dose: 40 mg Documented by: Guaifenesin (Guaifenesin 10 Ml Udc (200mg/10ml)) 20 ml PO Q4H PRN PRN PRN Reason: COUGH Hydralazine HCl (Hydralazine 20 Mg/Ml Vial) 10 mg IV Q4H PRN PRN PRN Reason: SBP > 160 Sodium Chloride () 1,000 mls @ 75 mls/hr IV .[id number] [facility] Last Infusion: 09/25/20 10:17 Dose: 75 mls/hr Documented by: Piperacillin Sod/Tazobactam (Sod 3.375 gm/ Sodium Chloride) 50 mls @ 12.5 mls/hr IV Q8 [facility] Last Infusion: 09/25/20 09:53 Dose: Infused Documented by: Pantoprazole Sodium 40 mg/ (Sodium Chloride) 110 mls @ 330 mls/hr IV Q12 [facility] Last Infusion: 09/25/20 10:17 Dose: Infused Documented by: Sodium Chloride () 250 mls @ 15 mls/hr IV .[id number] PRN PRN Reason: Saline Flush Last Infusion: 09/25/20 05:57 Dose: 0 mls/hr Documented by: Sodium Chloride () 250 mls @ 15 mls/hr IV .[id number] PRN PRN Reason: Additional IVPB Infusion Lactobacillus Acidophilus (Lactobacillus Acidophilus) 2 tablet PO BID [facility] Last Admin: 09/25/20 10:01 Dose: 2 tablet Documented by: Lisinopril (Lisinopril 10 Mg Tablet) 10 mg PO DAILY [facility] Last Admin: 09/25/20 10:03 Dose: 10 mg Documented by: Ondansetron HCl (Ondansetron 4 Mg/2 Ml Vial) 4 mg IV Q8H PRN PRN PRN Reason: NAUSEA/VOMITING Oxycodone HCl (Oxycodone 5 Mg Tablet) 5 mg PO Q4H PRN PRN PRN Reason: Pain Score 4-5 Last Admin: 09/23/20 10:55 Dose: 5 mg Documented by: Pravastatin Sodium (Pravastatin 80 Mg Tablet) 80 mg PO DAILY@2200 [facility] Last Admin: 09/24/20 22:32 Dose: 80 mg Documented by: Prochlorperazine Edisylate (Prochlorperazine 10 Mg/2 Ml Vial) 5 mg IV Q4H PRN PRN PRN Reason: Breakthrough nausea/vomiting Sodium Chloride (0.9% Saline Lock 10 Ml Syringe) 10 - 40 ml IV UD PRN PRN Reason: SALINE FLUSH Last Admin: 09/23/20 08:09 Dose: 10 ml Documented by: Temazepam (Temazepam 15 Mg Capsule) 15 mg PO QHS PRN PRN PRN Reason: INSOMNIA Throat Lozenges (Benzocaine/Menthol 1 Lozenge) 1 lozenge MUCOUS MEM Q2H PRN PRN PRN Reason: SORE THROAT Last Admin: 09/23/20 10:55 Dose: 1 lozenge Documented by: Discharge Activity: May Not Drive - for 1 week Weight Bearing Status: Weight bearing as tolerated Call your doctor if you observe: Fever of 101 or Higher, Coldness, Increased Pain, Numbness or Tingling, Change in Color, Inability to urinate, Inability to have a bowel movement, Using more than one pad per hour, Shortness of breath, Dizziness, Fainting spells, Swelling in the ankles, Chest pain, Prolonged hiccoughing, Increased palpitations (irregular heartbeat), Calf discomfort Home Medications: Medications to take at Discharge Citalopram [Celexa] 20 mg PO DAILY 04/15/16 Lisinopril/Hydrochlorothiazide [Zestoretic 08/17.5 Tablet] 1 tablet PO DAILY 04/15/16 Pravastatin [Pravachol] 80 mg PO DAILY 04/15/16 Aspirin [Aspirin, Baby] 81 mg PO DAILY@0800 02/19/17 Ascorbic Acid 500 mg PO DAILY 09/22/20 Multivitamin with Minerals [Multiple Vitamin] 1 tab PO DAILY 09/22/20 Omeprazole 20 mg PO DAILY 09/22/20 Amoxicillin/Potassium Clav [Augmentin 875-125 Tablet] 1 ea PO BID #14 tab 09/25/20 Lactobacillus Acidophilus [Acidophilus] 1 tab PO TID #60 tab 09/25/20 Following Prescriptions Were Given to Patient: Lactobacillus Acidophilus [Acidophilus] 1 tab PO TID #60 tab Transmission Status: Received by [facility] Amoxicillin/Potassium Clav [Augmentin 875-125 Tablet] 1 ea PO BID #14 tab Transmission Status: Received by [facility] Primary Care Physician: Katie Greer PA [Primary Care Provider] - Please follow up with your Primary Care Physician in: in 1-2 week Please Follow Up With: Petrona Salmon MD When: in 2-4 weeks Medical Necessity - Tobacco Use Smoking Status: Current every day smoker Tobacco Use: Non-smoker Meaningful Use Info Meaningful Use Diagnoses (Choose all that apply): None applicable Inpatient E&M: 85227 [facility]
[2020-09-25 11:46] VITALS: BP 136/66; PULSE 52; RESP 16; TEMP 36.7; O2SAT 99
== END 2020-09-25 15:30 | disposition home or self-care (01) | DRG 392 ==
LOC: ED 21:05 → MS3 21:30
PROVIDERS: Admitting Provider Family Medicine; Emergency Provider Student in an Organized Health Care Education/Training Program; PCP Physician Assistant; Visit Provider Internal Medicine
DX: K57.32 Diverticulitis of large intestine without perforation or abscess without bleeding (principal); I10 Essential (primary) hypertension; E78.5 Hyperlipidemia, unspecified; K21.9 Gastro-esophageal reflux disease without esophagitis; F32.9 Major depressive disorder, single episode, unspecified; F41.9 Anxiety disorder, unspecified; E66.9 Obesity, unspecified; Z68.31 Body mass index [BMI] 31.0-31.9, adult; Z90.710 Acquired absence of both cervix and uterus; Z90.49 Acquired absence of other specified parts of digestive tract; Z79.82 Long term (current) use of aspirin; Z79.899 Other long term (current) drug therapy; Z87.891 Personal history of nicotine dependence; Z80.0 Family history of malignant neoplasm of digestive organs
CPT/HCPCS: 36415; 74177; 80048; 80053; 81001; 83735; 85025; 87493; 99284; J7030; J7050; Q9967; A4216; J2405

== ENCOUNTER 2020-10-11 16:57 | Emergency (ER) | payer OTHER, SELFPAY ==
[2020-10-11 16:58] VITALS: BP 189/95; PULSE 88; RESP 16; TEMP 36.5; O2SAT 97; BMI 31.6
--- NOTE | 2020-10-11 17:18 | RAD_ITS ---
STUDY: X-RAY CHEST REASON FOR EXAM: Female, 59 years old. Cough, fever. TECHNIQUE: AP COMPARISON: None. FINDINGS: The lungs are clear and expanded. There is no demonstrated pleural abnormality. Normal size heart. Normal mediastinum and parul. Normal visualized pulmonary arteries. Normal visualized aortic arch and descending thoracic aorta. Normal visualized thoracic spine. Normal visualized ribs, clavicles, and shoulders. There is no demonstrated abnormality of the visualized soft tissue structures of the upper abdomen. RAD/Chest 1 View (Portable) IMPRESSION: Nonacute portable x-ray examination of the chest. Electronically Signed: Edwin Patel MD (Brooks) at 18:11 EST , Service support ,
--- NOTE | 2020-10-11 17:20 | ED.DCSUM_ITS ---
- ER Visit Summary Date of Service: 10/11/20 Chief Complaint: Dysuria History of Present Illness: The patient is a 59 F presenting with dysuria, urinary frequency, concern for UTI. She states this started today. She also states at work she has been exposed to several people who have Covid. She started to have chills and subjective fever. She took her temperature and it was 100.9. She states she has had rhinorrhea, mild cough. She denies chest pain or shortness of breath. She has nausea with no vomiting. Denies diarrhea. She has a mild headache. She complains of myalgias. She took Azo at home for her urinary symptoms. Physical Examination: Vitals are stable. Patient is afebrile. Alert no acute distress. HEENT exam is unremarkable. Neck is supple. Lungs are clear and equal bilaterally. Heart is regular rate and rhythm. Abdomen is soft mild suprapubic tenderness with no guarding or rebound Extremities are unremarkable. Skin is warm and dry. No focal neurologic deficit. Remainder of exam is unremarkable. Emergency Department Course and Treatment: Urinalysis shows 50-100 white blood cells, 2+ bacteria. Covid is positive. Chest x-ray shows no acute process. Her pulse ox remains 97% on room air. She is given Bactrim for her UTI. Advised to quarantine and social distance due to her Covid test. Advised to return to ED for worsening complaints. Disposition: Discharge home Impression: UTI, COVID-19 This note was generated with [employer] dictation software. It may contain incorrect words, spelling, and punctuation that were not noted in review of the chart prio r to signing ED Disposition - Plan for ED Patient: Instructions: Coronavirus Disease 2019 (COVID-19): Overview, ED Bladder Infection, Female (Adult) Prescriptions: Smz/Tmp Ds [Bactrim Ds] 1 tab PO BID #6 tab Prescription Printed Referrals: Katie Greer PA [Primary Care Provider] -
[2020-10-11 17:37] VITALS: BP 189/95; PULSE 88; RESP 16; TEMP 36.5; O2SAT 97
[2020-10-11 17:42] LABS: Mucous, Urine 0 SEEN /hpf (<or=2+)
[2020-10-11 18:04] LABS: Color, Urine Yellow (Yellow); Glucose, Dipstick Normal (Normal); Ketone-Dipstick Negative (Negative); Leukocyte Esterase-Dipstick 500 /ul (Negative); Nitrite-Dipstick Negative (Negative); Occult Blood-Urine 250 /ul (Negative); Protein-Dipstick 15 mg/dl (Negative); Urine Bilirubin Dipstick Negative (Negative); Urine Clarity Sl. Cloudy (Clear); Urine Urobilinogen Normal (Normal)
[2020-10-11 18:12] LABS: Bacteria 2+ /hpf (None Seen); Red Blood Cells-Urine 5-10 SEEN /hpf (0-5); Squamous Epithelial Cells - UA 0-5 SEEN /hpf (5-10); Transitional Epithelial - Ur 0-5 SEEN /hpf (0-5); White Blood Cells 50-100 SEEN /hpf (0-5)
--- NOTE | 2020-10-11 18:37 | ED.DEP ---
ED Disposition - Plan for ED Patient: Instructions: ED Bladder Infection, Female (Adult), Coronavirus Disease 2019 (COVID-19): Overview Prescriptions: Smz/Tmp Ds [Bactrim Ds] 1 tab PO BID #6 tab Prescription Printed Referrals: Katie Greer PA [Primary Care Provider] -
[2020-10-11 18:43] VITALS: BP 138/74; PULSE 69; RESP 15; O2SAT 97
[2020-10-11] MEDS: Smz/Tmp Ds Tablet 1 TABLET PO (18:43)
== END 2020-10-11 19:36 | disposition home or self-care (01) ==
LOC: ED 17:42
PROVIDERS: Emergency Provider Emergency Medicine; PCP Physician Assistant
DX: U07.1 COVID-19 (principal); N39.0 Urinary tract infection, site not specified; I10 Essential (primary) hypertension; K21.9 Gastro-esophageal reflux disease without esophagitis; F41.9 Anxiety disorder, unspecified; Z79.82 Long term (current) use of aspirin; Z79.899 Other long term (current) drug therapy
CPT/HCPCS: 71045; 81001; 87426; 99284

== ENCOUNTER 2021-03-11 11:50 | Day surgery (SDC) | payer OTHER, SELFPAY ==
[2021-03-11 12:35] VITALS: BP 113/68; PULSE 52; RESP 16; TEMP 37.1; O2SAT 96; BMI 30.7
[2021-03-11] MEDS: Lactated Ringers 1,000 ML 100 ML IV (12:41)
--- NOTE | 2021-03-11 13:00 | GASB_PTH ---
PATIENT: GULSHAN PINTO LOC: EN U#:[id number] AGE/SX: 60/F ROOM: RE03/11/[address]: Dr. Faustino Pina MD : 1960 BED: DIS: 03/11/2021 SPEC #: [id number] RECD: 03/11/21 13:49 STATUS: TIM REJonnie #: [id number] LAURIE: 03/11/21 13:[address]: Faustino Pina DEPT: SURGICAL PATHOLOGY RECD BY: Judy Barkley ENTERED: 03/12/21 09:49 SP TYPE: Gastric Bx OTHR DR: NATHALIE Jones Tissues: A - Gastric mucous membrane B - Gastric fundus Procedures: Surgery Specimen Level IV HEADER OPERATION: Colonoscopy, [place] PRE-OP DIAGNOSIS: Nausea, history of colon polyps, family history colon CA TISSUE SUBMITTED: A ? Antrum biopsy for H. pylori and path, B ? Biopsy of fundic polyp MICROSCOPIC DIAGNOSIS A. Antrum biopsy: Mild gastritis. See microscopic description and comment. B. Fundic polyp, biopsy: Fundic gland polyp. SUZI:chava 03/15/2021 COMMENT A. The results of immunohistochemistry for Helicobacter pylori will be reported separately ([id number]). MICROSCOPIC DESCRIPTION Slides are reviewed. A. The specimen shows fragments of gastric mucosa with chronic inflammatory cell infiltrates in the lamina propria consisting of lymphocytes and plasma cells, consistent with mild chronic gastritis. GROSS DESCRIPTION A - Received in fixative is one container labeled with the patient's name and designated antrum biopsy. The specimen consists of one irregular fragment of light powell soft tissue that measures 0.4 x 0.2 x 0.1 cm. The specimen is totally submitted in one cassette. B - Received in fixative is one container labeled with the patient's name and designated biopsy of fundic polyp. The specimen consists of one irregular fragment of light powell soft tissue that measures 0.4 x 0.2 x 0.1 cm. The specimen is totally submitted in one cassette. / SUZI:chava 03/12/21 TC:3 CPT: 57136 x2
--- NOTE | 2021-03-11 13:00 | IMM_PTH ---
PATIENT: GULSHAN PINTO LOC: [place] U#:[id number] AGE/SX: 60/F ROOM: RE03/11/[address]: Dr. Faustino Pina MD : 1960 BED: DIS: 03/11/2021 SPEC #: [id number] RECD: 03/12/21 09:30 STATUS: TIM REJonnie #: [id number] LAURIE: 03/11/21 13:[address]: Faustino Pina DEPT: IMMUNOHISTOCHEMISTRY RECD BY: Britney Simeon ENTERED: 03/12/21 09:31 SP TYPE: IMMUNO OTHR DR: NATHALIE Jones Tissues: A - Stomach, NOS Procedures: H Pylori (initial) PHYSICIAN & INSTITUTION [place] [id number] SPECIMEN INFORMATION: Tissue Source: A ? Antrum biopsy Clinical Info: Nausea, history colon polyps, family history colon CA Specimen Number: [id number] CPT code: 82017 METHODOLOGY: Deparaffinized sections of prefer/formalin-fixed tissue or PAP/DQ stained slides are incubated with monoclonal/polyclonal antibodies/oligonucleotide probes. Localization is made via biotin free immunoperoxidase method. Appropriate controls are performed and reacted as expected. Results on target cell population are indicated in the following table: RESULTS: ANTIBODY / CLONE RESULT Block A H Pylori (polyclonal) negative These tests were developed and their performance characteristics determined by [facility]. They may not have been cleared or approved by the U.S. Food and Drug Administration. The FDA has determined that such clearance or approval is not necessary. INTERPRETATION: A. Antrum biopsy: Negative for Helicobacter pylori organisms. SJ:chava 03/15/2021
[2021-03-11 13:30] VITALS: BP 103/57; BP 113/68; PULSE 74; RESP 18; TEMP 36.1; O2SAT 94
--- NOTE | 2021-03-11 13:34 | OP.EGD_ITS ---
Patient Name: Carol Rizzo Procedure Date: 03/11/2021 12:55 PM Date of : 1960 Age: 60 Procedure: Upper GI endoscopy Indications: Epigastric abdominal pain, Heartburn, Nausea Providers: Faustino Pina MD Referring MD: Katie Greer Medicines: See the Anesthesia note for documentation of the administered medications Patient Profile: This is a 60 year old female. Refer to note in patient chart for documentation of history and physical. Complications: No immediate complications. Procedure: Pre-Anesthesia Assessment: - Prior to the procedure, a History and Physical was performed, and patient medications and allergies were reviewed. The patient's tolerance of previous anesthesia was also reviewed. The risks and benefits of the procedure and the sedation options and risks were discussed with the patient. All questions were answered, and informed consent was obtained. Prior Anticoagulants: The patient has taken aspirin, last dose was 7 days prior to procedure. ASA Grade Assessment: III - A patient with severe systemic disease. After reviewing the risks and benefits, the patient was deemed in satisfactory condition to undergo the procedure. After obtaining informed consent, the endoscope was passed under direct vision. Throughout the procedure, the patient's blood pressure, pulse, and oxygen saturations were monitored continuously. The Endoscope was introduced through the mouth, and advanced to the second part of duodenum. The upper GI endoscopy was accomplished without difficulty. The patient tolerated the procedure well. Scope In: 1:08:36 PM Scope Out: 1:12:25 PM Total Procedure Duration Time 0 hours 3 minutes 49 seconds Findings: The Z-line was regular and was found 39 cm from the incisors. No biopsies or other specimens were collected for this exam. Multiple 6 mm pedunculated and sessile polyps with no bleeding and no stigmata of recent bleeding were found in the gastric fundus. Biopsies were taken with a cold forceps for histology. The entire examined stomach was normal. Biopsies were taken with a cold forceps for Helicobacter pylori testing. The examined duodenum was normal. No biopsies or other specimens were collected for this exam. Impression: - Z-line regular, 39 cm from the incisors. No specimens collected. - Multiple gastric polyps. Biopsied. - Normal stomach. Biopsied. - Normal examined duodenum. No specimens collected. Recommendation: - Discharge patient to home. - Resume previous diet. - Continue present medications. - Await pathology results. - Repeat upper endoscopy in 3 years for surveillance. - Return to nurse practitioner in 1 week. Procedure Code(s): --- Professional --- 75642, Esophagogastroduodenoscopy, flexible, transoral; with biopsy, single or multiple Diagnosis Code(s): --- Professional --- K31.7, Polyp of stomach and duodenum R10.13, Epigastric pain R12, Heartburn R11.0, Nausea CPT copyright 2017 [employer]. All rights reserved. The codes documented in this report are preliminary and upon bilingual loan processor review may be revised to meet current compliance requirements. MD Faustino Davenport MD 03/11/2021 1:33:47 PM This report has been signed electronically. Number of Addenda: 0 Note Initiated On: 03/11/2021 12:55 PM
--- NOTE | 2021-03-11 13:34 | OP.CCLET_ITS ---
03/11/2021 Katie Greer Re : Upper GI endoscopy procedure for Carol Rizzo Dear Percy This procedure was performed on March. My impressions and recommendations are as follows: Impressions : - Z-line regular, 39 cm from the incisors. No specimens collected. - Multiple gastric polyps. Biopsied. - Normal stomach. Biopsied. - Normal examined duodenum. No specimens collected. Recommendations : - Discharge patient to home. - Resume previous diet. - Continue present medications. - Await pathology results. - Repeat upper endoscopy in 3 years for surveillance. - Return to nurse practitioner in 1 week. My findings are described in the full procedure note, which is enclosed. If I can be of further assistance, please feel free to contact me at Doctor phone number(s): , Fax: [phone], Work: . Sincerely, MD Faustino Davenport MD 03/11/2021 1:33:47 PM This report has been signed electronically.
[2021-03-11 13:35] VITALS: BP 113/68; BP 94/63; PULSE 55; RESP 18; O2SAT 99
--- NOTE | 2021-03-11 13:38 | OP.CCLET_ITS ---
03/11/2021 Katie Greer Re : Colonoscopy procedure for Carol Rizzo Dear Percy This procedure was performed on March. My impressions and recommendations are as follows: Impressions : - Diverticulosis in the sigmoid colon and in the descending colon. No specimens collected. - Non-bleeding internal hemorrhoids. No specimens collected. - The examination was otherwise normal. Recommendations : - Discharge patient to home. - Resume previous diet. - Continue present medications. - Repeat colonoscopy in 5 years for surveillance. - Return to nurse practitioner in 1 week. My findings are described in the full procedure note, which is enclosed. If I can be of further assistance, please feel free to contact me at Doctor phone number(s): , Fax: [phone], Work: . Sincerely, MD Faustino Davenport MD 03/11/2021 1:37:44 PM This report has been signed electronically.
--- NOTE | 2021-03-11 13:38 | OP.COLON_ITS ---
Patient Name: Carol Rizzo Procedure Date: 03/11/2021 1:13 PM Date of : 1960 Age: 60 Procedure: Colonoscopy Indications: Screening in patient at increased risk: Family history of 1st-degree relative with colorectal cancer Providers: Faustino Pina MD Referring MD: Katie Greer Medicines: See the Anesthesia note for documentation of the administered medications Patient Profile: This is a 60 year old female. Refer to note in patient chart for documentation of history and physical. Last Colonoscopy: March 2014. Complications: No immediate complications. Procedure: Pre-Anesthesia Assessment: - Prior to the procedure, a History and Physical was performed, and patient medications and allergies were reviewed. The patient's tolerance of previous anesthesia was also reviewed. The risks and benefits of the procedure and the sedation options and risks were discussed with the patient. All questions were answered, and informed consent was obtained. Prior Anticoagulants: The patient has taken aspirin, last dose was 7 days prior to procedure. ASA Grade Assessment: III - A patient with severe systemic disease. After reviewing the risks and benefits, the patient was deemed in satisfactory condition to undergo the procedure. After I obtained informed consent, the scope was passed under direct vision. Throughout the procedure, the patient's blood pressure, pulse, and oxygen saturations were monitored continuously. The adult colonoscope was introduced through the anus and advanced to the cecum, identified by appendiceal orifice and ileocecal valve. The colonoscopy was performed without difficulty. The patient tolerated the procedure well. The quality of the bowel preparation was good. Scope In: 1:15:09 PM Scope Withdrawal Time 0 hours 6 minutes 5 seconds Scope Out: 1:26:38 PM Total Procedure Duration Time 0 hours 11 minutes 29 seconds Findings: Multiple small and large-mouthed diverticula were found in the sigmoid colon and descending colon. No biopsies or other specimens were collected for this exam. Non-bleeding internal hemorrhoids were found during retroflexion. The hemorrhoids were mild and small. No biopsies or other specimens were collected for this exam. The exam was otherwise without abnormality. Impression: - Diverticulosis in the sigmoid colon and in the descending colon. No specimens collected. - Non-bleeding internal hemorrhoids. No specimens collected. - The examination was otherwise normal. Recommendation: - Discharge patient to home. - Resume previous diet. - Continue present medications. - Repeat colonoscopy in 5 years for surveillance. - Return to nurse practitioner in 1 week. Procedure Code(s): --- Professional --- G0105, Colorectal cancer screening; colonoscopy on individual at high risk Diagnosis Code(s): --- Professional --- Z80.0, Family history of malignant neoplasm of digestive organs K64.8, Other hemorrhoids K57.30, Diverticulosis of large intestine without perforation or abscess without bleeding CPT copyright 2017 [employer]. All rights reserved. The codes documented in this report are preliminary and upon tank worker review may be revised to meet current compliance requirements. MD Faustino Davenport MD 03/11/2021 1:37:44 PM This report has been signed electronically. Number of Addenda: 0 Note Initiated On: 03/11/2021 1:13 PM
[2021-03-11 13:40] VITALS: BP 105/61; BP 113/68; PULSE 50; RESP 18; O2SAT 100
[2021-03-11 13:51] VITALS: BP 113/68; BP 116/67; PULSE 49; RESP 18; TEMP 36.4; O2SAT 100
[2021-03-11 14:25] VITALS: BP 113/68
== END 2021-03-11 14:38 ==
LOC: EN 11:50 → AC 11:51
PROVIDERS: PCP Physician Assistant; Referring Provider Physician Assistant; Visit Provider Surgery
PROC: 0DJD8ZZ Inspection of Lower Intestinal Tract, Via Natural or Artificial Opening Endoscopic (ICD-10-PCS; CPT 45378; principal; 2021-03-11 12:55)
DX: K29.70 Gastritis, unspecified, without bleeding (principal); K31.7 Polyp of stomach and duodenum; K21.9 Gastro-esophageal reflux disease without esophagitis; R11.0 Nausea; Z12.11 Encounter for screening for malignant neoplasm of colon; K64.8 Other hemorrhoids; K57.30 Diverticulosis of large intestine without perforation or abscess without bleeding; I10 Essential (primary) hypertension; F32.9 Major depressive disorder, single episode, unspecified; F41.9 Anxiety disorder, unspecified; Z20.822 Contact with and (suspected) exposure to COVID-19; Z79.82 Long term (current) use of aspirin; Z79.899 Other long term (current) drug therapy; Z86.16 Personal history of COVID-19; Z87.891 Personal history of nicotine dependence; Z80.0 Family history of malignant neoplasm of digestive organs
CPT/HCPCS: 43239; 45378; 87426; 88305; 88342; C9803; J7120; J2405

== ENCOUNTER 2021-09-23 10:10 | Emergency (ER) | payer OTHER, SELFPAY ==
[2021-09-23 10:11] VITALS: BP 143/78; PULSE 20; RESP 97; TEMP 36.8; O2SAT 86; BMI 32.4
--- NOTE | 2021-09-23 10:31 | CT_ITS ---
STUDY: CT ABDOMEN AND PELVIS WITHOUT CONTRAST REASON FOR EXAM: Female, 60 years old. LLQ abd pain RADIATION DOSAGE (If Supplied By Facility): CTDIvol = ( 13.39 ) mGy, DLP = ( 891.87 ) mGycm TECHNIQUE: Transaxial images were obtained from the dome of the diaphragm to the symphysis pubis without oral contrast, and without intravenous contrast. Sagittal and coronal images were reconstructed. Individualized dose optimization techniques were used for this CT. COMPARISON: Comparison is made with prior study dated 09/22/2020. FINDINGS: The visualized lung bases are unremarkable. The visualized portions of the heart are within normal limits. Normal liver. Normal gallbladder and extrahepatic biliary system. Normal spleen. Normal pancreas. Normal bilateral adrenal glands. There is a 6.5 JAMAL by 5.9 cm cyst in the upper pole of the right kidney. Normal left kidney. There is a small hiatal hernia. Normal small intestine. There is diverticulosis, with thickening of the colon wall, and pericolonic inflammation changes consistent with acute diverticulitis. The appendix is visualized and appears normal. Normal abdominal aorta. Normal inferior vena cava. There is borderline retroperitoneal lymphadenopathy with enlarged nodes no greater than 10mm in the short axis diameter. Normal urinary bladder. There is absence of the uterus consistent with a prior hysterectomy. There is a small umbilical hernia containing fat. Normal osseous structures. CT/Abdomen/Pelvis W IV Cont ONLY IMPRESSION: Findings in keeping with a noncomplicated acute sigmoid diverticulitis with increased markings in the surrounding peritoneal fat. Electronically Signed: Meek Erwin MD at 11:41 EST , Service support ,
[2021-09-23 10:42] LABS: Absolute Lymphocyte Count 1.36 X10^3/uL (0.83-4.51); Absolute Neutrophil Count 5.9 X10^3/uL (2.0-7.7); Basophil# 0.03 X10^3/uL; Basophil% 0.4 % (0-1); Eosinophils% 1.2 % (0-5); Hematocrit 39.7 % (37-47); Lymphocyte # 1.36 X10^3/ul (0.83-4.51); Lymphocyte % 16.9 % (19-41); Mean Corp Hgb Conc 32.7 g/dL (32-36); Mean Corpuscular Hgb 31.5 pg (27.0-32.0); Mean Corpuscular Volume 96.1 fL (81-99); Monocyte# 0.58 X10^3/uL; Monocyte% 7.2 % (0-10); NRBC Flagged by Analyzer 0 % (0-5); Neutrophil # 5.94 X10^3/uL (2.7-7.7); Neutrophil % 73.9 % (47-70); Platelet Count 262 K/mm3 (150-450); RBC Distribution Width CV 12.7 % (11.6-14.6); RBC Distribution Width SD 45.1 fl (35.1-43.9); Red Blood Count 4.13 M/mm3 (4.2-5.4)
--- NOTE | 2021-09-23 10:43 | ED.VIS.GI ---
HPI HPI - GI History of Present Illness Chief Complaint: Abd Pain Informant: patient Narrative Narrative: Patient is a 60-year-old female with history of diverticulitis 1 year ago presenting with worsening lower abdominal pain. She states that her left lower quadrant but radiates across her lower abdomen. She has had associated small mucus filled bowel movements. Denies any associated blood in her stool. She states she has severe abdominal pain whenever she has a bowel movement. She has associated nausea with dry heaves but no vomiting. She is had a temperature up to 100.2. Patient notes this feels like her prior diverticulitis. She tried taking ibuprofen with some relief of her symptoms. She denies any upper abdominal pain, chest pain or difficulty breathing. Has had prior hysterectomy, tubal ligation, appendectomy and bladder sling. Prior similar symptoms: Yes PFSH PFSH Medical History Anxiety Former smoker GERD (gastroesophageal reflux disease) Hx of cardiovascular stress test Hx of pulmonary embolus (~1988) Hypertension Sleep apnea Wears glasses Home Medications citalopram 20 mg PO DAILY 04/15/16 [History Last Taken 09/22/21] aspirin 81 mg PO DAILY@0800 02/19/17 [History Last Taken 09/22/21] ascorbic acid (vitamin C) 500 mg PO DAILY 09/22/20 [History Last Taken 09/22/21] multivitamin with minerals 1 tab PO DAILY 09/22/20 [History Last Taken 09/22/21] omeprazole 20 mg PO DAILY 09/22/20 [History Last Taken 09/22/21] cholecalciferol (vitamin D3) [Vitamin D3] 50 mcg PO DAILY 03/09/21 [History Last Taken 09/22/21] amoxicillin-pot clavulanate [Augmentin] 1 tab PO BID #14 tab 09/23/21 [Rx Last Taken Unknown] hydrocodone-acetaminophen 1 tab PO Q6H PRN 3 Days #12 tab 09/23/21 [Rx Last Taken Unknown] lisinopril-hydrochlorothiazide 1 tab PO DAILY 09/23/21 [History Last Taken 09/22/21] ondansetron HCl [Zofran] 4 mg PO Q8H PRN #14 tab 09/23/21 [Rx Last Taken Unknown] pravastatin 80 mg PO DAILY 09/23/21 [History Last Taken 09/22/21] Allergy/AdvReac Type Severity Reaction Status Date / Time No Known Allergies Allergy Verified 09/23/21 10:12 Surgical History History of bilateral carpal tunnel release Hx of appendectomy Hx of bladder repair surgery Hx of colonoscopy Hx of hysterectomy Hx of tonsillectomy Hx of tubal ligation Social History Smoking Status: Former smoker ROS ROS ED Constitutional Constitutional ED: Reports chills and fever(s) ENT ENT ED: Denies rhinorrhea or sore throat Cardiovascular Cardiovascular: Denies chest pain Respiratory/Chest Respiratory/Chest: Denies dyspnea Gastrointestinal Gastrointestinal: Reports abdominal pain and nausea; Denies diarrhea, melena or vomiting Genitourinary Genitourinary ED: Denies dysuria, hematuria or urinary frequency Musculoskeletal Musculoskeletal: Denies arthralgias or myalgias Integumentary Denies rash Neurologic Neurologic: Denies headache(s) or weakness Psychiatric Psychiatric: Denies depression EXAM Physical Exam Const Vital Signs: 09/23/21 10:11 09/23/21 11:40 09/23/21 13:00 Temperature 98.3 F 98.4 F 98.3 F Temperature Source Temporal Oral Oral Pulse Rate 20 L 64 75 Respiratory Rate 97 H 18 16 Blood Pressure 143/78 H 134/63 H 148/105 H Blood Pressure Mean 99 86 119 Pulse Ox 86 97 97 Oxygen Delivery Method Room Air Room Air Room Air Positive well nourished and well developed General Appearance ED: well developed HEENT normocephalic and atraumatic Eyes PERRL Neck no lymphadenopathy and supple Resp normal respiratory effort and clear to auscultation bilaterally Cardio regular rate, regular rhythm and no murmurs GI GI Narrative: Voluntary guarding Auscultation: normoactive bowel sounds Palpation: soft and tender LLQ and suprapubic; Negative for rigid or rebound tenderness present Back/Spine no CVA tenderness Extremity full ROM General Extremety ED: Negative for edema or tenderness General Extremity: Negative for edema Neuro moves all extremities Sensorium / Orientation: alert Motor Exam: Negative for general weakness Psych mental status grossly normal Mood & Affect: tearful Skin Lesions: no lesions Rashes: no rashes MDM MDM MDM Narrative Medical decision making narrative: Patient evaluated for worsening abdominal pain with subjective fevers at home. Patient appears very anxious and is tearful. She does have significant tenderness of her lower abdomen. She does have a history of diverticulitis. She does not have a leukocytosis. No report of any blood in her stool and her hemoglobin is stable. CMP largely unremarkable. Lactate is normal. CT is consistent with uncomplicated sigmoid diverticulitis. Patient is given 2 doses of IV morphine as well as IV Zofran, IV fluids and a dose of IV Toradol. Discussed outpatient treatment of this. She does have improvement of pain while in the emergency room. Patient is very hesitant as she has a history of not tolerating antibiotics due to severe diarrhea and she is worried she would not tolerate these antibiotics as well. She is given a dose of IV Zosyn in the ER. Did discuss the case with hospitalist who does not feel that she warrants admission criteria or IV medications at this time. We will trial a p.o. challenge. Patient is willing to trial outpatient oral antibiotics with pain and nausea control. She is encouraged to take either Pepto-Bismol or Imodium if she does that she gets severe antibiotic related diarrhea. She is given return precautions and encouraged to return the emergency room if she feels that she is getting worse or if she is not able to tolerate her antibiotics. Patient discharged home in stable condition. Lab Data Attestation: I reviewed the patient's lab results. Labs: Laboratory Results - last 24 hr 09/23/21 09/23/21 09/23/21 10:25 10:25 10:40 WBC 8.0 RBC 4.13 L Hgb 13.0 Hct 39.7 MCV 96.1 MCH 31.5 MCHC 32.7 RDW Std Deviation 45.1 H RDW Coeff of Jaylen 12.7 Plt Count 262 MPV 10.0 Immature Gran % (Auto) 0.400 Neut % (Auto) 73.9 H Lymph % (Auto) 16.9 L [place] % (Auto) 7.2 Eos % (Auto) 1.2 Baso % (Auto) 0.4 Absolute Neuts (auto) 5.9 Absolute Lymphs (auto) 1.36 Nucleated RBC % 0 Sodium 139 Potassium 3.5 Chloride 106 Carbon Dioxide 29.0 Anion Gap 4 L BUN 13 Creatinine 0.89 Estim Creat Clear Calc 48.89 Est GFR (MDRD) Af Amer 83 Est GFR (MDRD) Non-Af 68 BUN/Creatinine Ratio 14.5 Glucose 115 H Lactic Acid 0.6 Calcium 8.8 Total Bilirubin 0.70 AST 11 L ALT 19 Alkaline Phosphatase 46 Total Protein 7.1 Albumin 3.2 Globulin 3.9 Albumin/Globulin Ratio 0.8 L Lipase 75 Urine Color Urine Clarity Urine pH Ur Specific [place] Urine Protein Urine Glucose (UA) Urine Ketones Urine Occult Blood Urine Nitrite Urine Bilirubin Urine Urobilinogen Ur Leukocyte Esterase Urine RBC Urine WBC Ur Squamous Epith Cells Urine Bacteria Urine Mucus 09/23/21 10:53 WBC RBC Hgb Hct MCV MCH MCHC RDW Std Deviation RDW Coeff of [place] Plt Count MPV Immature Gran % (Auto) Neut % (Auto) Lymph % (Auto) [place] % (Auto) Eos % (Auto) Baso % (Auto) Absolute Neuts (auto) Absolute Lymphs (auto) Nucleated RBC % Sodium Potassium Chloride Carbon Dioxide Anion Gap BUN Creatinine Estim Creat Clear Calc Est GFR (MDRD) Af Amer Est GFR (MDRD) Non-Af BUN/Creatinine Ratio Glucose Lactic Acid Calcium Total Bilirubin AST ALT Alkaline Phosphatase Total Protein Albumin Globulin Albumin/Globulin Ratio Lipase Urine Color Yellow Urine Clarity Clear Urine pH 5.0 Ur Specific [place] 1.025 Urine Protein 15 H Urine Glucose (UA) Normal Urine Ketones 15 H Urine Occult Blood 25 H Urine Nitrite Negative Urine Bilirubin Negative Urine Urobilinogen 4 H Ur Leukocyte Esterase 25 H Urine RBC 0 SEEN Urine WBC 0 SEEN Ur Squamous Epith Cells 0 SEEN Urine Bacteria 0 SEEN Urine Mucus 0 SEEN Radiography Diagnostic Testing: Clinical Impression(s) from Imaging Studies Abdomen/Pelvis CT 09/23/21 10:31 IMPRESSION: Findings in keeping with a noncomplicated acute sigmoid diverticulitis with increased markings in the surrounding peritoneal fat. Electronically Signed: Meek Erwin MD at 11:41 EST , Service support , Discharge Plan Triage Chief Complaint: Abd Pain ED Provider: Naida Arguello Dx/Rx/DC Orders Clinical Impression: Sigmoid diverticulitis, Abdominal pain, acute, Nausea Instructions: ED Diverticulitis Prescriptions: New amoxicillin-pot clavulanate [Augmentin] 875-125 mg tablet 1 tab PO BID Qty: 14 RF: 0 hydrocodone-acetaminophen 5-325 mg tablet 1 tab PO Q6H PRN (Reason: pain) 3 Days Qty: 12 RF: 0 ondansetron HCl [Zofran] 4 mg tablet 4 mg PO Q8H PRN (Reason: nausea and vomiting) Qty: 14 RF: 0 No Action citalopram 20 MG tablet 20 mg PO DAILY RF: 0 aspirin 81 MG tablet,chewable 81 mg PO DAILY@0800 RF: 0 ascorbic acid (vitamin C) 500 MG tablet 500 mg PO DAILY RF: 0 omeprazole 20 MG capsule,delayed release(DR/EC) 20 mg PO DAILY RF: 0 multivitamin with minerals 1 EACH tablet 1 tab PO DAILY RF: 0 cholecalciferol (vitamin D3) [Vitamin D3] 50 mcg (2,000 unit) Capsule 50 mcg PO DAILY RF: 0 pravastatin 80 mg tablet 80 mg PO DAILY RF: 0 lisinopril-hydrochlorothiazide 10-12.5 mg tablet 1 tab PO DAILY RF: 0 Primary Care Provider: Katie Greer Referrals: Katie Greer PA [Primary Care Provider] - Activity Restrictions/Additional Instructions: Take Pepto Bismol as needed for diarrhea. Take probiotics and eat yogurt while on antibiotics. PLease return to the ED if you feel that you are getting worse or not tolerating your medications. Disposition Disposition: Home, Self Care
[2021-09-23] MEDS: Ketorolac 15 MG/ML Vial IV (10:52)
[2021-09-23] MEDS: 0.9% Normal Saline 1,000 ML 1000 ML IV (10:52)
[2021-09-23] MEDS: Morphine 4 MG/ML Syringe IV ×2 (10:52→12:19)
[2021-09-23] MEDS: Ondansetron 4 MG/2 ML Vial IV (10:52)
[2021-09-23 10:57] LABS: ALB/GLOB Ratio 0.8 RATIO (0.9-2.4); AST(SGOT) 11 U/L (15-37); Alanine Aminotransfer ALT/SGPT 19 U/L (13-56); Albumin, Serum 3.2 g/dL (3.2-5.0); Alkaline Phosphatase 46 U/L (45-117); Anion Gap 4 (5-15); BUN 13 mg/dL (7-18); BUN/Creat Ratio 14.5 RATIO (10-20); Calcium,Total 8.8 mg/dL (8.5-10.1); Chloride 106 mmol/L (98-107); Creatinine, Serum 0.89 mg/dL (0.55-1.02); EST Glomerular Filtration Rate 68 mL/min (>60); Est Glom Filt Rate - Afr Amer 83 mL/min (>60); Estimated Creatinine Clearance 48.89 ml/min; Globulin 3.9 g/dL (2.2-4.2); Glucose 115 mg/dL (74-106); Lipase 75 U/L (73-393); Potassium 3.5 mmol/L (3.5-5.1); Protein, Total 7.1 g/dL (6.4-8.2); Sodium Level 139 mmol/L (136-145)
[2021-09-23 11:03] LABS: Bacteria 0 SEEN /hpf (None Seen); Mucous, Urine 0 SEEN /hpf (<or=2+); Red Blood Cells-Urine 0 SEEN /hpf (0-5); Squamous Epithelial Cells - UA 0 SEEN /hpf (5-10); White Blood Cells 0 SEEN /hpf (0-5)
[2021-09-23 11:07] LABS: Color, Urine Yellow (Yellow); Glucose, Dipstick Normal (Normal); Ketone-Dipstick 15 mg/dl (Negative); Leukocyte Esterase-Dipstick 25 /ul (Negative); Nitrite-Dipstick Negative (Negative); Occult Blood-Urine 25 /ul (Negative); Protein-Dipstick 15 mg/dl (Negative); Specific Gravity, Urine 1.025 (1.002-1.030); Urine Bilirubin Dipstick Negative (Negative); Urine Clarity Clear (Clear); Urine Urobilinogen 4 mg/dl (Normal)
[2021-09-23 11:10] LABS: Lactic Acid 0.6 mmol/L (0.4-1.9)
[2021-09-23 11:40] VITALS: BP 134/63; PULSE 64; RESP 18; TEMP 36.9; O2SAT 97
[2021-09-23 13:00] VITALS: BP 148/105; PULSE 75; RESP 16; TEMP 36.8; O2SAT 97
[2021-09-23] MEDS: Piperacil/Tazobactam 3.375 GM/50 ML ML IV (13:13)
[2021-09-23] MEDS: HYDROcodone Bitartrate/Apap 5/325 Tablet PO (14:17)
[2021-09-23 15:23] VITALS: BP 109/65; PULSE 80; RESP 16; TEMP 36.8; O2SAT 97
--- NOTE | 2021-09-23 15:24 | ED.RN ---
Patient waiting for to arrive for discharge[facility] [place] [facility] be [facility] way ([id number])
[2021-09-23 16:32] VITALS: BP 103/64; PULSE 74
== END 2021-09-23 16:33 | disposition home or self-care (01) ==
PROVIDERS: Emergency Provider Emergency Medicine; PCP Physician Assistant
DX: K57.32 Diverticulitis of large intestine without perforation or abscess without bleeding (principal); K21.9 Gastro-esophageal reflux disease without esophagitis; I10 Essential (primary) hypertension; Z90.710 Acquired absence of both cervix and uterus; Z90.89 Acquired absence of other organs; Z79.899 Other long term (current) drug therapy; Z79.82 Long term (current) use of aspirin; Z87.891 Personal history of nicotine dependence
CPT/HCPCS: 74177; 80053; 81001; 83605; 83690; 85025; 96365; 96375; 96376; 99285; J7030; Q9967; A4216; J2405